=== PATIENT | female | born 1950 | race Caucasian/White ===

== ENCOUNTER 2020-06-16 10:01 | Outpatient (REF) | payer MEDICARE, MEDICAID, SELFPAY | END 2020-06-16 10:02 | disposition home or self-care (01) | LOC: HO.LAB 10:01 | PROVIDERS: Visit Provider Internal Medicine | DX: Z20.828 Contact with and (suspected) exposure to other viral communicable diseases (principal) | CPT/HCPCS: C9803; U0003 ==

== ENCOUNTER 2020-07-11 11:50 | Outpatient (REF) | payer MEDICARE, MEDICAID, SELFPAY ==
[2020-07-11 13:21] LABS: Hematocrit 42.2 % (37-47); Hemoglobin 13.9 g/dl (12.0-16.0); Mean Corpuscular HGB Conc 32.9 g/dl (31.0-35.0); Mean Corpuscular Hemoglobin 34.2 pg (27.0-33.0); Mean Corpuscular Volume 103.7 fL (80-98); Mean Platelet Volume 10.6 fL (9.4-12.3); Platelet Count 237 X10*3/uL (160-400); Red Blood Count 4.07 X10*6/uL (4.20-5.50); White Blood Count 5.7 X10*3/uL (4.8-10.8)
[2020-07-11 13:52] LABS: Alanine Aminotransferase 15 U/L (0-31); Albumin Level 4.5 g/dL (3.5-5.0); Alkaline Phosphatase 88 U/L (39-117); Anion Gap 14 (12-20); Aspartate Amino Transferase 19 U/L (5-31); Bilirubin Total 0.8 mg/dL (0.0-1.0); Blood Urea Nitrogen 13 mg/dL (9-16); Calcium 9.1 mg/dL (8.4-10.2); Carbon Dioxide 27 mmol/L (22-29); Chloride 107 mmol/L (96-108); Cholesterol 196 mg/dL; Estimated Glomerular Filt Rate > 60; Glucose Random 76 mg/dL (60-115); HDL Cholesterol 55 mg/dL; LDL Cholesterol Calculated 113 mg/dl; Potassium 4.1 mmol/l (3.3-5.1); Sodium 144 mmol/L (135-145); Total Protein 7.3 g/dL (6.5-8.0); Triglycerides 144 mg/dL
[2020-07-11 14:15] LABS: TSH reflex Free T4 0.82 mIU/mL (0.32-4.0)
[2020-07-11 14:20] LABS: Vitamin B12 < 146 pg/mL (200-900)
== END 2020-07-11 11:51 | disposition home or self-care (01) ==
LOC: HO.LAB 11:50
PROVIDERS: PCP Registered Nurse; Visit Provider Registered Nurse
DX: R41.0 Disorientation, unspecified (principal); R32 Unspecified urinary incontinence; L65.9 Nonscarring hair loss, unspecified
CPT/HCPCS: 36415; 80053; 80061; 82607; 84443; 85027

== ENCOUNTER 2020-07-12 10:29 | Outpatient (REF) | payer MEDICARE, MEDICAID, SELFPAY ==
[2020-07-12 10:41] LABS: Glucose Urine UA NEG (NEG); Leukocyte Esterase Urine NEG (NEG); Nitrite Urine NEG (NEG); PH 6.5 (5.0-8.0); Specific Gravity - Urine 1.025 (1.005-1.025); Urine Blood NEG (NEG); Urine Ketones NEG (NEG); Urine Protein NEG (NEG-TRACE)
[2020-07-12 10:54] LABS: Appearance Urine CLEAR; Color Urine YELLOW
== END 2020-07-12 10:30 | disposition home or self-care (01) ==
LOC: HO.LNP 10:29
PROVIDERS: Visit Provider Registered Nurse
DX: Z00.00 Encounter for general adult medical examination without abnormal findings (principal); R41.0 Disorientation, unspecified; L65.9 Nonscarring hair loss, unspecified; R32 Unspecified urinary incontinence
CPT/HCPCS: 81003

== ENCOUNTER 2021-09-29 07:25 | Outpatient (REF) | payer MEDICARE, MEDICAID, SELFPAY ==
[2021-09-29 08:15] LABS: Hematocrit 40.6 % (37.0-47.0); Hemoglobin 13.4 g/dl (12.0-16.0); Mean Corpuscular Hemoglobin 35.4 pg (27.0-33.0); Mean Corpuscular Volume 107.4 fL (80.0-98.0); Mean Platelet Volume 10.3 fL (9.4-12.3); Platelet Count 253 X10*3/uL (160-400); Red Blood Count 3.78 X10*6/uL (4.20-5.50); Red Cell Distribution Width 11.9 % (11.0-16.0); White Blood Count 7.4 X10*3/uL (4.8-10.8)
[2021-09-29 08:43] LABS: Alanine Aminotransferase 11 U/L (0-31); Albumin Level 4.1 g/dL (3.5-5.0); Alkaline Phosphatase 93 U/L (39-117); Anion Gap 13 (12-20); Aspartate Amino Transferase 16 U/L (5-31); Bilirubin Total 0.8 mg/dL (0.0-1.0); Blood Urea Nitrogen 16 mg/dL (9-16); Calcium 9.9 mg/dL (8.4-10.2); Carbon Dioxide 28 mmol/L (22-29); Chloride 109 mmol/L (96-108); Cholesterol 195 mg/dL; Estimated Glomerular Filt Rate > 60; Glucose Random 92 mg/dL (60-115); HDL Cholesterol 55 mg/dL; LDL Cholesterol Calculated 123 mg/dl; Potassium 4.8 mmol/L (3.3-5.1); Sodium 145 mmol/L (135-145); Total Protein 6.7 g/dL (6.5-8.0); Triglycerides 87 mg/dL
[2021-09-29 09:04] LABS: TSH reflex Free T4 0.76 uIU/mL (0.32-4.0)
[2021-10-01 08:00] LABS: ~Hepatitis B Surface Antibody NONREACTIVE (Nonreactive)
[2021-10-01 08:47] LABS: Vitamin B12 < 146 pg/mL (200-900)
== END 2021-09-29 07:26 | disposition home or self-care (01) ==
LOC: HO.LAB 07:25
PROVIDERS: PCP Registered Nurse; Visit Provider Registered Nurse
DX: Z00.00 Encounter for general adult medical examination without abnormal findings (principal); R41.0 Disorientation, unspecified; L65.9 Nonscarring hair loss, unspecified
CPT/HCPCS: 36415; 80053; 80061; 82607; 84443; 85027; 86706

== ENCOUNTER 2021-10-02 11:50 | Outpatient (REF) | payer MEDICARE, MEDICAID, SELFPAY ==
[2021-10-02 12:08] LABS: Appearance Urine CLOUDY; Color Urine YELLOW; Glucose Urine UA NEG (NEG); Leukocyte Esterase Urine NEG (NEG); Nitrite Urine NEG (NEG); Urine Blood NEG (NEG); Urine Ketones NEG (NEG); Urine Protein NEG (NEG-TRACE)
== END 2021-10-02 11:51 | disposition home or self-care (01) ==
LOC: HO.LNP 11:50
PROVIDERS: Visit Provider Registered Nurse
DX: Z00.00 Encounter for general adult medical examination without abnormal findings (principal); R41.0 Disorientation, unspecified; L65.9 Nonscarring hair loss, unspecified
CPT/HCPCS: 81003

== ENCOUNTER 2022-02-25 11:13 | Outpatient (REF) | payer MEDICARE, MEDICAID, SELFPAY ==
[2022-02-25 12:15] LABS: Appearance Urine CLOUDY; Color Urine YELLOW; Glucose Urine UA NEG (NEG); Leukocyte Esterase Urine 2+ (NEG); Nitrite Urine POS (NEG); Specific Gravity - Urine >= 1.030 (1.005-1.025); UACC Culture Trigger YES; Urine Blood 3+ (NEG); Urine Ketones 40 MG/DL (NEG); Urine Protein 2+ MG/DL (NEG-TRACE)
[2022-02-25 12:48] LABS: WBC Urine TNTC /HPF (0-4)
[2022-02-25 12:49] LABS: Bacteria Urine 3+ /LPF; Squamous Epithelial Cell Urine TRACE /LPF
== END 2022-02-25 11:14 | disposition home or self-care (01) ==
LOC: HO.LNP 11:13
PROVIDERS: Visit Provider Nurse Practitioner Family
DX: R35.0 Frequency of micturition (principal)
CPT/HCPCS: 81001; 81003; 87086; 87088; 87186

== ENCOUNTER 2022-03-20 16:49 | Outpatient (REF) | payer MEDICARE, MEDICAID, SELFPAY ==
[2022-03-20 18:05] LABS: Hematocrit 43.4 % (37.0-47.0); Hemoglobin 14.4 g/dl (12.0-16.0); Mean Corpuscular HGB Conc 33.2 g/dl (31.0-35.0); Mean Corpuscular Hemoglobin 34.8 pg (27.0-33.0); Mean Corpuscular Volume 104.8 fL (80.0-98.0); Mean Platelet Volume 11.1 fL (9.4-12.3); Platelet Count 243 X10*3/uL (160-400); Red Blood Count 4.14 X10*6/uL (4.20-5.50); Red Cell Distribution Width 12.6 % (11.0-16.0); White Blood Count 8.1 X10*3/uL (4.8-10.8)
[2022-03-20 18:13] LABS: Alanine Aminotransferase 16 U/L (0-31); Alkaline Phosphatase 88 U/L (39-117); Anion Gap 18 (12-20); Aspartate Amino Transferase 17 U/L (5-31); Bilirubin Total 0.4 mg/dL (0.0-1.0); Blood Urea Nitrogen 9 mg/dL (9-16); Carbon Dioxide 25 mmol/L (22-29); Chloride 105 mmol/L (96-108); Estimated Glomerular Filt Rate > 60; Glucose Random 92 mg/dL (60-115); Potassium 3.5 mmol/L (3.3-5.1); Sodium 144 mmol/L (135-145); Total Protein 6.7 g/dL (6.5-8.0)
[2022-03-20 18:34] LABS: Thyroid Stimulating Hormone 0.89 uIU/mL (0.32-4.0)
[2022-03-21 08:55] LABS: ~HepC Num1 0.36 S/CO (0.00-0.79); ~Hepatitis C Antibody Nonreactive (Nonreactive)
== END 2022-03-20 16:50 | disposition home or self-care (01) ==
LOC: HO.LAB 16:49
PROVIDERS: Visit Provider Internal Medicine
DX: Z11.59 Encounter for screening for other viral diseases (principal); R53.81 Other malaise; R53.83 Other fatigue; N39.0 Urinary tract infection, site not specified
CPT/HCPCS: 36415; 80053; 82306; 84443; 85027; 86803

== ENCOUNTER 2022-03-21 09:48 | Outpatient (REF) | payer MEDICARE, MEDICAID, SELFPAY ==
[2022-03-21 10:04] LABS: Appearance Urine Turbid; Color Urine Yellow; Glucose Urine UA Negative (Negative); Leukocyte Esterase Urine Moderate (2+) (Negative); Nitrite Urine Negative (Negative); PH 8.5 (5.0-9.0); Urine Blood Trace (Negative); Urine Ketones Negative (Negative); Urine Protein Negative (Neg-Trace)
[2022-03-21 10:23] LABS: Bacteria Urine Trace (None Seen); Hyaline Casts Urine 0-2 /LPF (0-2)
[2022-03-21 10:25] LABS: UACC Culture Trigger YES
== END 2022-03-21 09:49 | disposition home or self-care (01) ==
LOC: HO.LNP 09:48
PROVIDERS: Visit Provider Registered Nurse
DX: N39.0 Urinary tract infection, site not specified (principal)
CPT/HCPCS: 81001; 81003; 87086

== ENCOUNTER 2022-03-26 11:45 | Emergency (ER) | payer MEDICARE, MEDICAID, SELFPAY ==
--- NOTE | ~2022-03-26 | CT_ITS ---
EXAMINATION: CT HEAD WITHOUT CONTRAST CLINICAL INFORMATION: Change in mental status COMPARISON: None TECHNIQUE: Contiguous axial imaging was performed from the skull base to vertex without intravenous administration of contrast. Additional 2-D coronal and sagittal reformatted images are generated on the CT workstation and uploaded to PACS. This CT examination was performed using dose optimization techniques as appropriate, variously including the following: *Automated exposure control *Adjustment of mA and/or kV according to patient size (this includes techniques or standardized protocols for targeted exams where dose is matched to indication/reason for exam; i.e. extremities or head) *Use of iterative reconstruction technique DLP: 672 mGy-cm FINDINGS: There is no intracranial hemorrhage, hematoma, or extra-axial fluid collection. The ventricles are normal in size. There is no hydrocephalus, edema, or mass effect. There is periventricular white matter gliosis consistent with small vessel ischemic changes. Pham-white matter differentiation appears within normal. There is no visible acute territorial infarct or mass lesion. The calvarium appears intact. There is no pneumocephalus or orbital emphysema. The visualized sinuses and middle ears and mastoid air cells show no significant mucosal thickening. There are no air-fluid levels. There are degenerative changes upper cervical spine involving the discs and facets. There is no atlantoaxial subluxation of 7 mm best appreciated on the sagittal reformatted images. CT/CT head/brain wo IV con IMPRESSION: -Atlantoaxial subluxation 7 mm (C1-C2). -Periventricular white matter gliosis consistent with chronic small vessel ischemic changes. -No intracranial hemorrhage, hydrocephalus, or mass effect.
--- NOTE | ~2022-03-26 | XR_ITS ---
EXAMINATION: XR CHEST CLINICAL INFORMATION: Weakness. COMPARISON: None TECHNIQUE: Frontal view of the chest was obtained. FINDINGS: No significant abnormality is noted involving the heart, lungs, mediastinum, bony thorax or soft tissues. XR/XR chest 1V IMPRESSION: No acute cardiopulmonary process.
--- NOTE | 2022-03-26 11:56 | ECG_ITS ---
Test Reason : weakness Blood Pressure : / mmHG Vent. Rate : 077 BPM Atrial Rate : 077 BPM P-R Int : 128 ms QRS Dur : 084 ms QT Int : 372 ms P-R-T Axes : 070 -37 058 degrees QTc Int : 420 ms Normal sinus rhythm Left axis deviation Nonspecific T wave abnormality Abnormal ECG No previous ECGs available Referred By: Denise León Electronically Signed By:DORIE ACEVEDO
--- NOTE | 2022-03-26 11:57 | ED_ITS ---
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 14:00 more history was obtained from the caregiver who knows the patient for the last 8 years, symptoms started about 6 weeks ago after was diagnosed with COVID, patient is progressively and gradually deteriorating, with increased weakness on the right upper extremity, patient used to feed herself with the right side now is unable to feed herself due to right upper extremity weakness. Reported also by the caregiver patient is becoming incontinent. Related Data Home Medications Medication Instructions Recorded Confirmed acetaminophen 325 mg tablet 650 mg PO Q6H PRN Fever Or Pain 03/26/22 03/26/22 calcium carbonate 500 mg-vitamin 1 tab PO BID 03/26/22 03/26/22 D3 5 mcg (200 unit) tablet (Oyster Shell Calcium-Vitamin D3) dantrolene 25 mg capsule 25 mg PO BEDTIME 03/26/22 03/26/22 guaifenesin 100 mg/5 mL oral liquid 200 mg PO Q4H PRN Cough 03/26/22 03/26/22 magnesium oxide 400 mg (241.3 mg 1 tab PO DAILY 03/26/22 03/26/22 magnesium) tablet omeprazole 20 mg capsule,delayed 1 cap PO DAILY 03/26/22 03/26/22 release psyllium husk 3 gram/5.4 gram oral 1 tsp PO DAILY 03/26/22 03/26/22 powder (Reguloid (psyllium husk)) Allergies Allergy/AdvReac Type Severity Reaction Status Date / Time No Known Allergies Allergy Unverified 03/30/20 15:28 Review of Systems Review of Systems: Yes Unobtainable due to mental condition (Congenital cerebral palsy) [facility] Past Medical History Medical History (Updated 03/26/22 @ 17:39 by Denise León MD) Cerebral palsy Social History Social History Advance Directives: No Advance Directives Information Provided: No Physical Exam ED Vital Signs: Vital Signs - 24 hr 03/26/22 12:03 03/26/22 12:06 03/26/22 16:49 Temperature 99.4 F 99.4 F 99.1 F Pulse Rate 77 75 62 Respiratory Rate 16 14 12 Blood Pressure 167/97 H 167/97 H 157/89 H Pulse Oximetry 97 97 98 Oxygen Delivery Method Room Air Room Air Room Air BMI result Body Mass Index 17.6 Vital signs have been reviewed as appeared to be correct. Blood pressure normal. Heart rate normal. Respiration rate normal. Temperature normal. Oxygen saturation normal. Appearance: Alert. Nonverbal, regards examiner with her eyes. Head: Normal external exam. Normocephalic. Atraumatic. No Chavarria signs noted. No raccoon eyes noted Eyes: PERRLA. EOMI. Conjunctiva and sclera normal. Eyelids normal. ENT: TM's Normal. Pharynx normal. Uvula midline. Moist mucous membranes. No trismus noted. No drooling noted. No muffled voice noted. Neck: Normal inspection. Neck supple. FROM. No adenopathy. Thyroid Normal. No meningeal signs. No neck mass noted. CVS: Normal heart rate and rhythm. Heart sound normal. No murmurs noted. Pulses normal throughout. Respiratory: No respiratory distress. Painless inspiration. Breath sounds normal. No wheezes/rales/rhonchi noted. Chest nontender. No accessory muscle usage noted or decreased air movement noted. Abdomen: Soft and nontender. Bowel sounds normal in all 4 quadrants. No distention noted. No organomegaly noted. No visible injury noted. Back: No CVA tenderness. Full range of motion noted. Skin: Skin warm and dry. Normal skin color. Normal skin turgor. No rashes/lesions/lacerations noted. Extremities: No lower extremity edema. Extremities exhibit normal range of motion. Extremities nontender. Neuro: Nonverbal Generalized body contraction Course Course Course Narrative: 71-year-old female with history of CP, mostly bed/wheelchair bound, according to the caregiver patient was able to feed herself with her right hand, patient also was able to asked be transported to the bathroom, for the past 2 months after she was infected with COVID patient has been deteriorating and deconditioning with increased weakness on the right side and urinary incontinence. Workup was done in the emergency department today showing no major medical condition to explain patient's symptoms CT of the head revealed significant C1-C2 subluxation (7 mm) which could be a reason of patient's symptoms, case discussed with Dr. Lawler who recommended to discuss it with neurosurgeon. After detailed lengthy discussion with the caregiver and the brother Jv Govea who is the legal guardian neuro surgical consultation was requested by the family. Case discussed with [facility] transfer system patient was declined for transfer due to over volume at [facility]. Case discussed with [facility] and the patient will be accepted for ED to ED transfer accepting physician is Dr. Nilsa Cooper. Will arrange for transfer. Medical Decision Making Lab Data Lab results reviewed: Yes I reviewed the patient's lab results. Result diagrams: 03/26/22 14:17 03/26/22 14:17 Labs: Lab Results 03/26/22 03/26/22 03/26/22 Range/Units 14:17 14:17 14:17 WBC 6.7 (4.8-10.8) X10*3/uL RBC 3.49 L (4.20-5.50) X10*6/uL Hgb 12.3 (12.0-16.0) g/dl Hct 36.8 L (37.0-47.0) % MCV 105.4 H (80.0-98.0) fL MCH 35.2 H (27.0-33.0) pg MCHC 33.4 (31.0-35.0) g/dl RDW 12.9 (11.0-16.0) % Plt Count 235 (160-400) X10*3/uL MPV 9.9 (9.4-12.3) fL Immature Gran % (Auto) 0.3 (0.0-0.4) % Neut % (Auto) 70.9 (45-73) % Lymph % (Auto) 18.6 L (20-40) % [place] % (Auto) 9.0 (2-11) % Eos % (Auto) 0.9 (0-4) % Baso % (Auto) 0.3 (0-2) % Lymph # (Auto) 1.2 (1.2-4.9) X10*3/uL [place] # (Auto) 0.6 (0.1-1.2) X10*3/uL Eos # (Auto) 0.1 (0.0-0.4) X10*3/uL Baso # (Auto) 0.0 (0.0-0.2) X10*3/uL Abs Immat Gran (auto) 0.02 (0.00-0.03) X10*3/uL Absolute Neuts (auto) 4.7 (2.0-8.3) x10*3/uL Absolute Nucleated RBC 0.000 (0.0-0.012) X10*3/uL Nucleated RBC % (auto) 0.0 (0.0-0.2) /100WBC Sodium 146 H (135-145) mmol/L Potassium 3.5 (3.3-5.1) mmol/L Chloride 111 H (96-108) mmol/L Carbon Dioxide 27 (22-29) mmol/L Anion Gap 12 (12-20) BUN 10 (9-16) mg/dL Creatinine 0.57 (0.5-1.4) mg/dL Estim Creat Clear Calc 50.0 Estimated GFR > 60 Random Glucose 93 (60-115) mg/dL Calcium 8.4 D (8.4-10.2) mg/dL Total Bilirubin 0.4 (0.0-1.0) mg/dL Direct Bilirubin 0.2 (0.0-0.5) mg/dL AST 16 (5-31) U/L ALT 19 (0-31) U/L Alkaline Phosphatase 78 (39-117) U/L Troponin I High Sens < 3.5 (<3.5-17.0) ng/L B-Natriuretic Peptide 31 (<100) pg/mL Total Protein 5.9 L (6.5-8.0) g/dL Albumin 3.6 (3.5-5.0) g/dL Lipase 66 (8-78) U/L Urine Color Urine Appearance Urine pH (5.0-9.0) Ur Specific [place] (1.005-1.025) Urine Protein (Neg-Trace) mg/dL Urine Glucose (UA) (Negative) mg/dL Urine Ketones (Negative) mg/dL Urine Blood (Negative) Urine Nitrite (Negative) Ur Leukocyte Esterase (Negative) Urine RBC (0-2) /HPF Urine WBC (0-5) /HPF Ur Squamous Epith Cells (0-2) /HPF Ur Transition Epith Cell Ur Renal Epithelial Cell Other Crystals Urine Bacteria (None Seen) Hyaline Casts (0-2) /LPF Influenza Type A (PCR) (Negative) Influenza Type B (PCR) (Negative) RSV RNA Qual (PCR) (Negative) SARS-CoV-2 RNA (RT-PCR) (Negative) 03/26/22 03/26/22 Range/Units 14:38 16:45 WBC (4.8-10.8) X10*3/uL RBC (4.20-5.50) X10*6/uL Hgb (12.0-16.0) g/dl Hct (37.0-47.0) % MCV (80.0-98.0) fL MCH (27.0-33.0) pg MCHC (31.0-35.0) g/dl RDW (11.0-16.0) % Plt Count (160-400) X10*3/uL MPV (9.4-12.3) fL Immature Gran % (Auto) (0.0-0.4) % Neut % (Auto) (45-73) % Lymph % (Auto) (20-40) % [place] % (Auto) (2-11) % Eos % (Auto) (0-4) % Baso % (Auto) (0-2) % Lymph # (Auto) (1.2-4.9) X10*3/uL [place] # (Auto) (0.1-1.2) X10*3/uL Eos # (Auto) (0.0-0.4) X10*3/uL Baso # (Auto) (0.0-0.2) X10*3/uL Abs Immat Gran (auto) (0.00-0.03) X10*3/uL Absolute Neuts (auto) (2.0-8.3) x10*3/uL Absolute Nucleated RBC (0.0-0.012) X10*3/uL Nucleated RBC % (auto) (0.0-0.2) /100WBC Sodium (135-145) mmol/L Potassium (3.3-5.1) mmol/L Chloride (96-108) mmol/L Carbon Dioxide (22-29) mmol/L Anion Gap (12-20) BUN (9-16) mg/dL Creatinine (0.5-1.4) mg/dL Estim Creat Clear Calc Estimated GFR Random Glucose (60-115) mg/dL Calcium (8.4-10.2) mg/dL Total Bilirubin (0.0-1.0) mg/dL Direct Bilirubin (0.0-0.5) mg/dL AST (5-31) U/L ALT (0-31) U/L Alkaline Phosphatase (39-117) U/L Troponin I High Sens (<3.5-17.0) ng/L B-Natriuretic Peptide (<100) pg/mL Total Protein (6.5-8.0) g/dL Albumin (3.5-5.0) g/dL Lipase (8-78) U/L Urine Color Yellow Urine Appearance Cloudy Urine pH 8.0 (5.0-9.0) Ur Specific [place] 1.010 (1.005-1.025) Urine Protein Negative (Neg-Trace) mg/dL Urine Glucose (UA) Negative (Negative) mg/dL Urine Ketones Negative (Negative) mg/dL Urine Blood Small (1+) H (Negative) Urine Nitrite Negative (Negative) Ur Leukocyte Esterase Trace H (Negative) Urine RBC 6-10 H (0-2) /HPF Urine WBC 0-5 (0-5) /HPF Ur Squamous Epith Cells 3-5 (0-2) /HPF Ur Transition Epith Cell Present Ur Renal Epithelial Cell Present Other Crystals Present Urine Bacteria None Seen (None Seen) Hyaline Casts 3-5 (0-2) /LPF Influenza Type A (PCR) NEGATIVE (Negative) Influenza Type B (PCR) NEGATIVE (Negative) RSV RNA Qual (PCR) NEGATIVE (Negative) SARS-CoV-2 RNA (RT-PCR) NEGATIVE (Negative) Imaging Data CT scan - head: Attestation: I personally reviewed and interpreted this imaging study as follows: Radiologist's impression: There is no intracranial hemorrhage, hematoma, or extra-axial fluid collection.? The ventricles are normal in size. There is no hydrocephalus, edema, or mass effect.? There is periventricular white matter gliosis consistent with small vessel ischemic changes. Pham-white matter differentiation appears within normal. There is no visible acute territorial infarct or mass lesion. The calvarium appears intact. There is no pneumocephalus or orbital emphysema.? The visualized sinuses and middle ears and mastoid air cells show no significant mucosal thickening. There are no air-fluid levels. There are degenerative changes upper cervical spine involving the discs and facets. There is no atlantoaxial subluxation of 7 mm best appreciated on the sagittal reformatted images. CT/CT head/brain wo IV con IMPRESSION: -Atlantoaxial subluxation 7 mm (C1-C2). -Periventricular white matter gliosis consistent with chronic small vessel ischemic changes. -No intracranial hemorrhage, hydrocephalus, or mass effect. ? Chest x-ray: Attestation: I personally reviewed and interpreted this imaging study as follows: Radiologist's impression: No acute cardiopulmonary process. ECG Data Attestation: I personally reviewed and interpreted this ECG as follows: Interpretation: Normal sinus rhythm at 77 beats per minute, left axis deviation, normal intervals, nonspecific ST-T changes. Discharge Plan Discharge Clinical Impression: Cerebral palsy, Physical deconditioning, Atlanto-axial subluxation Patient Disposition: General Acute Hospital Transfer Details: To the ED accepted by Dr. Ash. Prescriptions: No Action acetaminophen 325 mg Tablet 650 mg PO Q6H PRN (Reason: Fever Or Pain) dantrolene 25 mg capsule 25 mg PO BEDTIME magnesium oxide 400 mg (241.3 mg magnesium) tablet 1 tab PO DAILY omeprazole 20 mg capsule,delayed release(DR/EC) 1 cap PO DAILY calcium carbonate-vitamin D3 [Oyster Shell Calcium-Vit D3] 500 mg-5 mcg (200 unit) tablet 1 tab PO BID Reguloid (psyllium husk) 3 gram/5.4 gram powder 1 tsp PO DAILY guaifenesin 100 mg/5 mL Liquid 200 mg PO Q4H PRN (Reason: Cough)
[2022-03-26 11:59] VITALS: BP 160/102; PULSE 93; O2SAT 99
[2022-03-26 12:03] VITALS: BP 167/97; PULSE 77; RESP 16; TEMP 37.4; O2SAT 97; BMI 17.6
[2022-03-26 12:06] VITALS: BP 167/97; PULSE 75; RESP 14; TEMP 37.4; O2SAT 97
[2022-03-26] MEDS: 0.9 % Sodium Chloride 1,000 ML 999 ML IV (13:20)
[2022-03-26 14:21] LABS: MANUAL DIFF FLAG NO
[2022-03-26 14:34] LABS: Basophils Percent Auto 0.3 % (0-2); Eosinophils Absolute Auto 0.1 X10*3/uL (0.0-0.4); Eosinophils Percent Auto 0.9 % (0-4); Hematocrit 36.8 % (37.0-47.0); Hemoglobin 12.3 g/dl (12.0-16.0); Imm Gran Abs Auto 0.02 X10*3/uL (0.00-0.03); Imm Gran Pct Auto 0.3 % (0.0-0.4); Lymphocytes Absolute Auto 1.2 X10*3/uL (1.2-4.9); Lymphocytes Percent Auto 18.6 % (20-40); Mean Corpuscular HGB Conc 33.4 g/dl (31.0-35.0); Mean Corpuscular Hemoglobin 35.2 pg (27.0-33.0); Mean Corpuscular Volume 105.4 fL (80.0-98.0); Mean Platelet Volume 9.9 fL (9.4-12.3); Monocytes Absolute Auto 0.6 X10*3/uL (0.1-1.2); Neutrophils Absolute Auto 4.7 x10*3/uL (2.0-8.3); Neutrophils Percent Auto 70.9 % (45-73); Platelet Count 235 X10*3/uL (160-400); Red Blood Count 3.49 X10*6/uL (4.20-5.50); Red Cell Distribution Width 12.9 % (11.0-16.0); White Blood Count 6.7 X10*3/uL (4.8-10.8)
[2022-03-26 14:40] LABS: Alanine Aminotransferase 19 U/L (0-31); Albumin Level 3.6 g/dL (3.5-5.0); Alkaline Phosphatase 78 U/L (39-117); Anion Gap 12 (12-20); Aspartate Amino Transferase 16 U/L (5-31); Bilirubin Direct 0.2 mg/dL (0.0-0.5); Bilirubin Total 0.4 mg/dL (0.0-1.0); Blood Urea Nitrogen 10 mg/dL (9-16); Calcium 8.4 mg/dL (8.4-10.2); Carbon Dioxide 27 mmol/L (22-29); Chloride 111 mmol/L (96-108); Estimated Glomerular Filt Rate > 60; Glucose Random 93 mg/dL (60-115); Lipase 66 U/L (8-78); Potassium 3.5 mmol/L (3.3-5.1); Sodium 146 mmol/L (135-145); Total Protein 5.9 g/dL (6.5-8.0)
[2022-03-26 14:43] LABS: B Type Natriuretic Peptide 31 pg/mL (<100); Troponin-I High Sensitivity < 3.5 ng/L (<3.5-17.0)
--- NOTE | 2022-03-26 14:59 | PHA.MEDREC ---
Pharmacy Consult ? Medication Reconciliation Pharmacy has completed the medication reconciliation. Utilized list faxed up to pharmacy
[2022-03-26 15:51] LABS: Influenza A PCR NEGATIVE (Negative); Influenza B PCR NEGATIVE (Negative); Resp Syncy Virus RNA Qual PCR NEGATIVE (Negative); SARS COV2 PCR INHOUSE NEGATIVE (Negative)
[2022-03-26 16:49] VITALS: BP 157/89; PULSE 62; RESP 12; TEMP 37.3; O2SAT 98
[2022-03-26 16:51] LABS: Appearance Urine Cloudy; Color Urine Yellow; Glucose Urine UA Negative (Negative); Leukocyte Esterase Urine Trace (Negative); Nitrite Urine Negative (Negative); UMIC TRIGGER UACC YES; Urine Blood Small (1+) (Negative); Urine Ketones Negative (Negative); Urine Protein Negative (Neg-Trace)
--- NOTE | 2022-03-26 16:55 | PC.NURSE ---
@ [id number] DR SEWELL REQUEST CALL OUT TO [facility] PT TX LINE FOR POSSIBLE TRANSFER SANJEEV ANSWERS AND ASKS TO SPEAK WITH DR DONATO SEWELL TAKES OVER CALL RIGHT AWAY
--- NOTE | 2022-03-26 16:57 | PC.NURSE ---
PER DR SEWELL [facility] TX LINE DECLINES THIS PT FOR TRANFER DR SEWELL REQUESTS CALL OUT TO [facility] ANSWERS AND TAKES PT INFO THEN ASKS TO SPEAK WITH DR DONATO SEWELL TAKES OVER CALL RIGHT AWAY
[2022-03-26 16:58] LABS: Bacteria Urine None Seen (None Seen); Other Crystals Urine Present; Renal Epithelial Cells Urine Present; Transitional Epi Cells Urine Present; WBC Urine 0-5 /HPF (0-5)
--- NOTE | 2022-03-26 19:36 | PC.NURSE ---
transfer to [facility] for neurosurgical consult
== END 2022-03-26 19:37 | disposition short-term general hospital (02) ==
PROVIDERS: Emergency Provider Emergency Medicine; PCP Registered Nurse
DX: G80.9 Cerebral palsy, unspecified (principal); R53.81 Other malaise; M43 Other deforming dorsopathies; R53.1 Weakness; Z20.822 Contact with and (suspected) exposure to COVID-19; Z79.899 Other long term (current) drug therapy
CPT/HCPCS: 0241U; 36415; 70450; 71045; 80048; 80076; 81001; 83690; 83880; 84484; 85025; 93005; 96360; 96361; 99284; 99285

== ENCOUNTER 2022-08-10 09:22 | Emergency (ER) | payer MEDICARE, MEDICAID, SELFPAY ==
--- NOTE | ~2022-08-10 | US_ITS ---
EXAMINATION: LEFT LOWER EXTREMITY DEEP VENOUS ULTRASOUND CLINICAL INFORMATION: Left leg swelling COMPARISON: None. TECHNIQUE: Duplex Doppler imaging with compression maneuvers were performed of the left lower extremity deep venous system. FINDINGS: The visualized common femoral, femoral and popliteal veins demonstrate normal compressibility and color flow without evidence of venous thrombosis. Visualized portions of the calf veins demonstrate normal color fill-in suggesting patency. There is no evidence of a Reid's cyst. US/US venous duplex LE LT IMPRESSION: No evidence of deep venous thrombosis involving the left lower extremity.
--- NOTE | ~2022-08-10 | US_ITS ---
EXAMINATION: US VENOUS WITH DOPPLER UPPER EXTREMITY, LEFT CLINICAL INFORMATION: Left upper extremity swelling. COMPARISON: None TECHNIQUE: Ultrasound of the upper extremity is performed using compression sonography and color and pulse Doppler flow with assessment of augmentation of flow. There is also imaging and Doppler assessment of the jugular and subclavian veins. Spectral analysis with color-flow imaging is performed. FINDINGS: Respiratory variation, normal compression, and augmented flow are noted throughout the upper extremity including the axillary, brachial, cubital, and ulnar veins. Radial veins not well seen. 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 There is normal flow in the internal jugular and subclavian veins. There is no visible deep or superficial thrombophlebitis. Distal forearm subcutaneous edema. If the patient's symptoms progress, a followup ultrasound in 5 -7 days might be of value to exclude proximal propagation from a nonvisualized distal arm vein. US/US venous duplex UE LT IMPRESSION: No DVT demonstrated in the left upper extremity.
--- NOTE | ~2022-08-10 | XR_ITS ---
EXAMINATION: XR ELBOW, LEFT CLINICAL INFORMATION: Pain and swelling COMPARISON: None TECHNIQUE: AP, lateral, and oblique views of the left elbow. Today's examination is limited secondary to difficulties with patient positioning FINDINGS: No gross fracture or dislocation. No joint effusion. No focal soft tissue swelling. No radiopaque foreign body. XR/XR elbow LT 2V IMPRESSION: Unremarkable radiographs of the left elbow.
[2022-08-10 09:29] VITALS: BP 201/126; PULSE 75; RESP 16; O2SAT 96; BMI 18.3
--- NOTE | 2022-08-10 09:31 | ED.EXTPRO ---
HPI - Extremity Problem General Chief complaint: Extremity Injury, Upper Stated complaint: LUE SWELLING/PAIN,NO INJURY PER EMS Time Seen by Provider: 08/10/22 09:23 Source: EMS and other (correction staff) Mode of arrival: EMS Limitations: other (nonverbal) History of Present Illness HPI Narrative: 72-year-old female with a history of cerebral palsy, wheelchair bound at baseline, c1/c2 instability (per staff now in aspen collar prn) who presents with complaints of atraumatic left elbow swelling and pain. Per staff they noticed this morning with waking. They felt that the patient was in pain. She is nonverbal at baseline. Related Data Home Medications Medication Instructions Recorded Confirmed acetaminophen 325 mg tablet 650 mg PO Q6H PRN Fever Or Pain 03/26/22 03/26/22 calcium carbonate 500 mg-vitamin 1 tab PO BID 03/26/22 03/26/22 D3 5 mcg (200 unit) tablet (Oyster Shell Calcium-Vitamin D3) dantrolene 25 mg capsule 25 mg PO BEDTIME 03/26/22 03/26/22 guaifenesin 100 mg/5 mL oral liquid 200 mg PO Q4H PRN Cough 03/26/22 03/26/22 magnesium oxide 400 mg (241.3 mg 1 tab PO DAILY 03/26/22 03/26/22 magnesium) tablet omeprazole 20 mg capsule,delayed 1 cap PO DAILY 03/26/22 03/26/22 release psyllium husk 3 gram/5.4 gram oral 1 tsp PO DAILY 03/26/22 03/26/22 powder (Reguloid (psyllium husk)) Previous Rx's Medication Instructions Recorded oxycodone 5 mg tablet 5 mg PO Q6H PRN pain #8 tabs 08/10/22 Allergies Allergy/AdvReac Type Severity Reaction Status Date / Time No Known Allergies Allergy Unverified 03/30/20 15:28 Review of Systems Review of Systems: Yes Unobtainable due to mental condition (non-verbal at baseline ) [facility] Past Medical History Attestation statement: The following information was validated with the patient. Source: old records reviewed and nursing notes reviewed Medical History Cerebral palsy Social History Social History Advance Directives: No Physical Exam Vital Signs: Vital Signs: Last Vital Signs Pulse 71 08/10/22 12:23 Resp 16 08/10/22 12:23 BP 141/87 H 08/10/22 12:23 Pulse Ox 95 08/10/22 12:23 O2 Del Method 08/10/22 12:23 BMI result Body Mass Index 18.3 Const: Other: +tearful during exam General: alert HEENT: Head: Yes normal to inspection Ears: hearing grossly normal bilaterally General nose exam: Normal external nose present Face and sinus: Yes normal facial exam Mouth: Normal oral and palatal mucosa present Throat: Yes posterior oropharynx normal Eyes: General: appearance normal, both eyes and all related structures Pupils: Equal, round and reactive pupils present Neck: Neck: Yes normal visual inspection Chest: Chest palpation & inspection: normal inspection of the chest Resp: Effort & Inspection: normal respiratory effort Auscultation: clear to auscultation bilaterally Cardio: Rate: regular rate Rhythm: regular rhythm Peripheral pulses: Peripheral pulses 2+ throughout GI: Inspection: Yes normal to inspection Palpation (GI): Soft to palpation and nontender Auscultation: normal bowel sounds Back/Spine/Pelvis: Thoracic/Lumbar Spine: thoracic and lumbar spine normal to inspection Skin: General skin exam: no rashes or lesions noted Neuro: Other: +contractures noted to all four extremities Cranial nerves: Yes Equal, round and reactive pupils present Extrem: Other: Over the left elbow there is mild circumferential swelling, no warmth or redness. Compartments are compressible. Elbow is held in partial flexion d/t contracture. Unable to assess ROM d/t contracture. Sensation normal. 2+ radial/ulnar pulses. On palpation there is tenderness. NO pain over the FA/humerus/shoulder. General: Yes normal to inspection Course Course Course Narrative: Labs are unremarkable with exception of mildly elevated lactic acid. I do not believe this is from infection. May be medication related. Continued pain despite APAP. X-ray shows no fracture. Will obtain venous US. Give additional analgesia. Reevaluation(s) Reevaluation #1: 1300-ultrasound negative for DVT. Repeat lactic improved. Blood pressure improved without intervention. Likely musculoskeletal. Patient will be discharged back to correction. Instructions given a correction staff. Reviewed worrisome signs and symptoms of when to return to the emergency room. Comfortable plan for discharge home. Medications Administered Discontinued Medications Generic Name Dose Route Start Last Admin Trade Name Reggie PRN Reason Stop Dose Admin Acetaminophen 650 mg 08/10/22 09:30 08/10/22 10:11 Acetaminophen 325 Mg Tablet PO 08/10/22 09:31 650 mg ONCE ONE Administration Oxycodone HCl 5 mg 08/10/22 10:53 08/10/22 11:11 Oxycodone Hcl Immed Release 5 Mg Tablet PO 08/10/22 10:54 5 mg ONCE ONE Administration Medical Decision Making Medical Decision Making [facility] [place] Narrative: 72 yo female from a correction with history of CP/ wheelchair bound at baseline with 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 Difficult to assess ROM d/t baseline contracture. There is circumferential swelling noted to the left elbow which is mild-compartments soft. +TTP. No warmth/redness. NV intact distally. Patient non-verbal winces, +tears during exam. Will obtain labs, x-ray Differential Diagnosis Differential Diagnoses: The differential diagnosis associated with the presentation includes Consider fracture, OA, cellulitis/septic joint, gout Low concern for nec fasc Staff reports h/o LUE DVT and she had been on eliquis. Unsure why she is no longer taking this. Will obtain US Lab Data [facility] [place] Lab Attestation statement: I reviewed the patient's lab results. 08/10/22 09:43 08/10/22 09:43 Labs: Lab Results 08/10/22 08/10/22 08/10/22 Range/Units 09:43 09:43 09:43 WBC 5.6 (4.8-10.8) X10*3/uL RBC 4.31 D (4.20-5.50) X10*6/uL Hgb 13.9 (12.0-16.0) g/dl Hct 42.0 (37.0-47.0) % MCV 97.4 (80.0-98.0) fL MCH 32.3 (27.0-33.0) pg MCHC 33.1 (31.0-35.0) g/dl RDW 12.3 (11.0-16.0) % Plt Count 308 D (160-400) X10*3/uL MPV 9.4 (9.4-12.3) fL Immature Gran % (Auto) 0.2 (0.0-0.4) % Neut % (Auto) 64.1 (45-73) % Lymph % (Auto) 25.2 (20-40) % Swain % (Auto) 8.4 (2-11) % Eos % (Auto) 1.6 (0-4) % Baso % (Auto) 0.5 (0-2) % Lymph # (Auto) 1.4 (1.2-4.9) X10*3/uL Swain # (Auto) 0.5 (0.1-1.2) X10*3/uL Eos # (Auto) 0.1 (0.0-0.4) X10*3/uL Baso # (Auto) 0.0 (0.0-0.2) X10*3/uL Abs Immat Gran (auto) 0.01 (0.00-0.03) X10*3/uL Absolute Neuts (auto) 3.6 (2.0-8.3) x10*3/uL Absolute Nucleated RBC 0.000 (0.0-0.012) X10*3/uL Nucleated RBC % (auto) 0.0 (0.0-0.2) /100WBC ESR 6 (0-20) MM/HR Sodium 145 (135-145) mmol/L Potassium 3.6 (3.3-5.1) mmol/L Chloride 110 H (96-108) mmol/L Carbon Dioxide 24 (22-29) mmol/L Anion Gap 15 (12-20) BUN 9 (9-16) mg/dL Creatinine 0.67 (0.5-1.4) mg/dL Estim Creat Clear Calc 61.5 Estimated GFR > 60 Random Glucose 113 (60-115) mg/dL Lactic Acid (0.5-2.0) mmol/L Lactic Acid F/U @ 2Hr (0.5-2.0) mmol/L Calcium 9.4 D (8.4-10.2) mg/dL C-Reactive Protein < 0.04 (< or = 0.50) mg/dL 08/10/22 08/10/22 Range/Units 09:43 12:28 WBC (4.8-10.8) X10*3/uL RBC (4.20-5.50) X10*6/uL Hgb (12.0-16.0) g/dl Hct (37.0-47.0) % MCV (80.0-98.0) fL MCH (27.0-33.0) pg MCHC (31.0-35.0) g/dl RDW (11.0-16.0) % Plt Count (160-400) X10*3/uL MPV (9.4-12.3) fL Immature Gran % (Auto) (0.0-0.4) % Neut % (Auto) (45-73) % Lymph % (Auto) (20-40) % Swain % (Auto) (2-11) % Eos % (Auto) (0-4) % Baso % (Auto) (0-2) % Lymph # (Auto) (1.2-4.9) X10*3/uL Swain # (Auto) (0.1-1.2) X10*3/uL Eos # (Auto) (0.0-0.4) X10*3/uL Baso # (Auto) (0.0-0.2) X10*3/uL Abs Immat Gran (auto) (0.00-0.03) X10*3/uL Absolute Neuts (auto) (2.0-8.3) x10*3/uL Absolute Nucleated RBC (0.0-0.012) X10*3/uL Nucleated RBC % (auto) (0.0-0.2) /100WBC ESR (0-20) MM/HR Sodium (135-145) mmol/L Potassium (3.3-5.1) mmol/L Chloride (96-108) mmol/L Carbon Dioxide (22-29) mmol/L Anion Gap (12-20) BUN (9-16) mg/dL Creatinine (0.5-1.4) mg/dL Estim Creat Clear Calc Estimated GFR Random Glucose (60-115) mg/dL Lactic Acid 2.9 H* (0.5-2.0) mmol/L Lactic Acid F/U @ 2Hr 1.5 (0.5-2.0) mmol/L Calcium (8.4-10.2) mg/dL C-Reactive Protein (< or = 0.50) mg/dL Independent Interpretation I performed an independent interpretation of an: Plain X-Ray and Ultrasound Interpretation: I independently reviewed the x-ray of the left elbow which shows no acute fracture I independently reviewed the ultrasound left upper extremity which shows no acute DVT. We Radiology Impression Discussion of test interpretation with radiology: I have reviewed the radiologist's reading. Radiologist Impression: COMPARISON: None? TECHNIQUE: AP, lateral, and oblique views of the left elbow. Today's examination is limited secondary to difficulties with patient positioning FINDINGS: No gross fracture or dislocation. No joint effusion. No focal soft tissue swelling. No radiopaque foreign body.? XR/XR elbow LT 2V IMPRESSION: Unremarkable radiographs of the left elbow. [place] [id number] Ultrasound Report Signed Patient: Sheree Govea MR#: [id number] : 1950 Acct:[id number] Age/Sex: 72 / F ADM Date: 08/10/22 Loc: .ED Attending Dr: Ordering Physician: Rufina Acosta NP Date of Service: 08/10/22 Procedure(s): US venous duplex UE Accession Number(s): [id number] cc: Rufina Acosta NP~ EXAMINATION:? US VENOUS WITH DOPPLER UPPER EXTREMITY, LEFT CLINICAL INFORMATION:? Left upper extremity swelling. COMPARISON:? None TECHNIQUE: Ultrasound of the upper extremity is performed using compression sonography and color and pulse Doppler flow with assessment of augmentation of flow. There is also imaging and Doppler assessment of the jugular and subclavian veins. Spectral analysis with color-flow imaging is performed. FINDINGS: Respiratory variation, normal compression, and augmented flow are noted throughout the upper extremity including the axillary, brachial, cubital, and ulnar veins. Radial veins not well seen. 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 There is normal flow in the internal jugular and subclavian veins. There is no visible deep or superficial thrombophlebitis. Distal forearm subcutaneous edema. If the patient's symptoms progress, a followup ultrasound in 5 -7 days might be of value to exclude proximal propagation from a nonvisualized distal arm vein. US/US venous duplex UE LT IMPRESSION: No DVT demonstrated in the left upper extremity. ? Independent Historian Clinical information obtained from an independent historian. History obtained from or confirmed by: Other ([facility] staff) Discharge Plan Discharge Clinical Impression: Elbow pain, left Patient Disposition: Home, Self-Care Instructions: Arthralgia (ED), Heat Pack Application (ED) Additional Instructions: The ultrasound shows no blood clot. The x-ray shows no fracture, lab work is normal Please follow-up with your primary care doctor outpatient Continue Tylenol for pain, take oxycodone only as needed Prescriptions: New oxycodone 5 mg tablet 5 mg PO Q6H PRN (Reason: pain) Qty: 8 0RF Rx Instructions: Partial Fill upon patient request. No Action acetaminophen 325 mg Tablet 650 mg PO Q6H PRN (Reason: Fever Or Pain) dantrolene 25 mg capsule 25 mg PO BEDTIME magnesium oxide 400 mg (241.3 mg magnesium) tablet 1 tab PO DAILY omeprazole 20 mg capsule,delayed release(DR/EC) 1 cap PO DAILY calcium carbonate-vitamin D3 [Oyster Shell Calcium-Vit D3] 500 mg-5 mcg (200 unit) tablet 1 tab PO BID Reguloid (psyllium husk) 3 gram/5.4 gram powder 1 tsp PO DAILY guaifenesin 100 mg/5 mL Liquid 200 mg PO Q4H PRN (Reason: Cough) Referrals: Aliosn Avelar NP [Primary Care Provider] - 1 week
[2022-08-10 09:50] LABS: MANUAL DIFF FLAG NO
[2022-08-10 09:55] LABS: Basophils Percent Auto 0.5 % (0-2); Eosinophils Absolute Auto 0.1 X10*3/uL (0.0-0.4); Eosinophils Percent Auto 1.6 % (0-4); Hemoglobin 13.9 g/dl (12.0-16.0); Imm Gran Abs Auto 0.01 X10*3/uL (0.00-0.03); Imm Gran Pct Auto 0.2 % (0.0-0.4); Lymphocytes Absolute Auto 1.4 X10*3/uL (1.2-4.9); Lymphocytes Percent Auto 25.2 % (20-40); Mean Corpuscular HGB Conc 33.1 g/dl (31.0-35.0); Mean Corpuscular Hemoglobin 32.3 pg (27.0-33.0); Mean Corpuscular Volume 97.4 fL (80.0-98.0); Mean Platelet Volume 9.4 fL (9.4-12.3); Monocytes Absolute Auto 0.5 X10*3/uL (0.1-1.2); Monocytes Percent Auto 8.4 % (2-11); Neutrophils Absolute Auto 3.6 x10*3/uL (2.0-8.3); Neutrophils Percent Auto 64.1 % (45-73); Platelet Count 308 X10*3/uL (160-400); Red Blood Count 4.31 X10*6/uL (4.20-5.50); Red Cell Distribution Width 12.3 % (11.0-16.0); White Blood Count 5.6 X10*3/uL (4.8-10.8)
[2022-08-10] MEDS: Acetaminophen 325 MG TABLET 650 MG PO (10:11)
[2022-08-10 10:37] LABS: Erythrocyte Sedimentation Rate 6 MM/HR (0-20)
[2022-08-10 10:46] LABS: Anion Gap 15 (12-20); Blood Urea Nitrogen 9 mg/dL (9-16); C Reactive Protein < 0.04 mg/dL (< or = 0.50); Calcium 9.4 mg/dL (8.4-10.2); Carbon Dioxide 24 mmol/L (22-29); Chloride 110 mmol/L (96-108); Creatinine Clr Calc Pharmacy 61.5; Estimated Glomerular Filt Rate > 60; Glucose Random 113 mg/dL (60-115); Potassium 3.6 mmol/L (3.3-5.1); Sodium 145 mmol/L (135-145)
[2022-08-10 10:50] LABS: Lactic Acid 2.9 mmol/L (0.5-2.0)
[2022-08-10] MEDS: oxyCODONE HCl Immed Release 5 MG TABLET PO (11:11)
[2022-08-10 11:48] LABS: Reflex Lactate? Lactic Acid Added
[2022-08-10 12:23] VITALS: BP 141/87; PULSE 71; RESP 16; O2SAT 95
[2022-08-10 12:45] LABS: ~Lactic Acid-LAB USE ONLY 1.5 mmol/L (0.5-2.0)
[2022-08-10 13:32] VITALS: BP 168/105; PULSE 78; RESP 16; TEMP 37.6; O2SAT 100
[2022-08-10 15:35] VITALS: BP 157/91; PULSE 79; RESP 16; TEMP 36.6; O2SAT 97
--- NOTE | 2022-08-10 15:36 | MHC.EDTECH ---
THIS PCT ASSUMED CARE OF PATIENT AT 1500 ,VITALS SIGN TAKEN ,EMS HERE TO TRANSPORT PATIENT TO A LONG-TERM .
== END 2022-08-10 15:42 | disposition home or self-care (01) ==
PROVIDERS: Nurse Practitioner Family; Emergency Provider Emergency Medicine; PCP Registered Nurse
DX: M25.522 Pain in left elbow (principal); M79.89 Other specified soft tissue disorders
CPT/HCPCS: 36415; 73070; 80048; 83605; 85025; 85652; 86140; 87040; 93971; 99284

== ENCOUNTER 2022-09-04 13:15 | Outpatient (REF) | payer MEDICARE, MEDICAID, SELFPAY ==
--- NOTE | ~2022-09-04 | XR_ITS ---
EXAMINATION: LEFT KNEE AND FEMUR CLINICAL INFORMATION: Left knee pain COMPARISON: None TECHNIQUE: AP and lateral views of the knee and AP and lateral views of the left femur. Study is limited due to patient being disabled in a wheelchair and unable to cooperate for study. FINDINGS: On the provided films no definite acute fracture or dislocation is evident of the left knee. No left knee effusion is seen. There is spurring of the patellofemoral joint. There is also prominent bony density about the medial femoral condyle which may be related to previous trauma or an exostosis but is more likely posttraumatic in nature. There is a bony fragment about the medial condyle consistent with previous medial collateral ligament injury. There is mild narrowing of the medial joint space compartment. An old mild tibial plateau compression fracture cannot be excluded on the provided imaging however since there is no effusion this is likely not an acute process. There is no evidence of acute fracture or dislocation of the left femur. No destructive bony lesions identified. Distal femoral changes as described in the knee portion of report. The hip joint space is maintained. There is some spurring seen about the lateral left ilium with the appearance of being related to enthesopathy. XR/XR femur LT 2V IMPRESSION: Chronic changes of the left knee as described. No acute fracture or destructive lesion appreciated.
--- NOTE | ~2022-09-04 | XR_ITS ---
EXAMINATION: LEFT KNEE AND FEMUR CLINICAL INFORMATION: Left knee pain COMPARISON: None TECHNIQUE: AP and lateral views of the knee and AP and lateral views of the left femur. Study is limited due to patient being disabled in a wheelchair and unable to cooperate for study. FINDINGS: On the provided films no definite acute fracture or dislocation is evident of the left knee. No left knee effusion is seen. There is spurring of the patellofemoral joint. There is also prominent bony density about the medial femoral condyle which may be related to previous trauma or an exostosis but is more likely posttraumatic in nature. There is a bony fragment about the medial condyle consistent with previous medial collateral ligament injury. There is mild narrowing of the medial joint space compartment. An old mild tibial plateau compression fracture cannot be excluded on the provided imaging however since there is no effusion this is likely not an acute process. There is no evidence of acute fracture or dislocation of the left femur. No destructive bony lesions identified. Distal femoral changes as described in the knee portion of report. The hip joint space is maintained. There is some spurring seen about the lateral left ilium with the appearance of being related to enthesopathy. XR/XR knee LT 2V IMPRESSION: Chronic changes of the left knee as described. No acute fracture or destructive lesion appreciated.
== END 2022-09-04 13:16 | disposition home or self-care (01) ==
LOC: HO.HMGCX 13:15
PROVIDERS: PCP Registered Nurse; Visit Provider Nurse Practitioner Family
DX: M25.562 Pain in left knee (principal); M25.462 Effusion, left knee
CPT/HCPCS: 73552; 73560

== ENCOUNTER 2023-03-13 11:55 | Emergency (ER) | payer MEDICARE, MEDICAID, SELFPAY ==
[2023-03-13 12:13] VITALS: BP 133/84; PULSE 76; RESP 16; TEMP 37.2; O2SAT 96; BMI 15.4
--- NOTE | 2023-03-13 12:16 | ED.GENADULT ---
HPI - General Adult General Chief complaint: Urogenital-Female Stated complaint: ?UTI Time Seen by Provider: 03/13/23 13:16 Source: patient Mode of arrival: ambulatory Limitations: no limitations History of Present Illness HPI narrative: 72 yo female with history of cerebral palsy and spina bifida, nonverbal and wheelchair bound who presents to the ER from her day program for evaluation of foul smelling urine and decreased UOP for the last 1 day. No fevers, chills, vomiting, diarrhea. MD complaint: foul smelling urine Onset (ago): day(s) (1) Relieving factors: none Exacerbating factors: none Associated symptoms: denies other symptoms Treatments prior to arrival: none Related Data Home Medications Medication Instructions Recorded Confirmed acetaminophen 325 mg tablet 650 mg PO Q6H PRN Fever Or Pain 03/26/22 03/26/22 calcium carbonate 500 mg-vitamin 1 tab PO BID 03/26/22 03/26/22 D3 5 mcg (200 unit) tablet (Oyster Shell Calcium-Vitamin D3) dantrolene 25 mg capsule 25 mg PO BEDTIME 03/26/22 03/26/22 magnesium oxide 400 mg (241.3 mg 1 tab PO DAILY 03/26/22 03/26/22 magnesium) tablet omeprazole 20 mg capsule,delayed 1 cap PO DAILY 03/26/22 03/26/22 release psyllium husk 3 gram/5.4 gram oral 1 tsp PO DAILY 03/26/22 03/26/22 powder (Reguloid (psyllium husk)) Previous Rx's Medication Instructions Recorded bismuth tribrom-petrolatum,wh 2 X #20 ea 01/07/23 2 bandage (Xeroform Petrolatum Dressing) cefuroxime axetil 250 mg tablet 250 mg PO BID 7 days #14 tabs 03/13/23 Allergies Allergy/AdvReac Type Severity Reaction Status Date / Time No Known Allergies Allergy Verified 03/13/23 12:16 Review of Systems Review of Systems: Yes all other systems are reviewed and are negative PMFSH Past Medical History Source: old records reviewed and nursing notes reviewed Medical History Cerebral palsy Social History Social History Advance Directives: No Advance Directives Information Provided: No Physical Exam ED Vital Signs: Vital Signs - 24 hr 03/13/23 12:13 03/13/23 14:27 Temperature 98.9 F Pulse Rate 76 74 Respiratory Rate 16 17 Blood Pressure 133/84 124/76 Pulse Oximetry 96 96 Oxygen Delivery Method Room Air Room Air BMI result Body Mass Index 15.4 Appearance: contracted, elderly female, nonverbal, no distress HEENT: normal inspection CVS: Normal heart rate and rhythm. Pulses normal. Respiratory: No respiratory distress. Lungs CTAB Skin: Skin warm and dry. Normal skin color. Normal skin turgor. No rashes. Abd: thin, soft, nontender, normal BS Extremities: contracted UE bilaterally. Neuro: awake and alert, at patient's baseline Course Course Course Narrative: RME: 72 yold female with CErebral palsy presents to the ED for foul odor UA. patient's Day Care once patient evaluated. labs and UA Medications Administered Discontinued Medications Generic Name Dose Route Start Last Admin Trade Name Freq PRN Reason Stop Dose Admin Cefuroxime Axetil 250 mg 03/13/23 14:11 03/13/23 14:22 Cefuroxime Axetil 250 Mg Tablet PO 03/13/23 14:12 250 mg ONCE ONE Administration Medical Decision Making Medical Decision Making MDM Narrative: 72 yo female presenting with decreased YUOP and foul smelling urine x1 day. VSS on arrival. no leukocytosis on labs. UA with ++infection. no evidence of sepsis at this time stable for d/c home with PO abx paperwork for halfway completed. Differential Diagnosis Differential Diagnoses: The differential diagnosis associated with the presentation includes UTI, dehydration, urinary retention, pyelonephritis, STEPHANIE Lab Data [facility] Lab Attestation statement: I reviewed the patient's lab results. normal renal function, no leukocytosis 03/13/23 12:37 03/13/23 12:37 Labs: Lab Results 03/13/23 03/13/23 03/13/23 Range/Units 12:37 12:37 13:51 WBC 6.8 (4.8-10.8) X10*3/uL RBC 3.97 L (4.20-5.50) X10*6/uL Hgb 13.4 (12.0-16.0) g/dl Hct 40.6 (37.0-47.0) % MCV 102.3 H (80.0-98.0) fL MCH 33.8 H (27.0-33.0) pg MCHC 33.0 (31.0-35.0) g/dl RDW 11.6 (11.0-16.0) % Plt Count 324 (160-400) X10*3/uL MPV 9.6 (9.4-12.3) fL Immature Gran % (Auto) 0.3 (0.0-0.4) % Neut % (Auto) 69.9 (45-73) % Lymph % (Auto) 20.1 (20-40) % [place] % (Auto) 7.9 (2-11) % Eos % (Auto) 1.2 (0-4) % Baso % (Auto) 0.6 (0-2) % Lymph # (Auto) 1.4 (1.2-4.9) X10*3/uL [place] # (Auto) 0.5 (0.1-1.2) X10*3/uL Eos # (Auto) 0.1 (0.0-0.4) X10*3/uL Baso # (Auto) 0.0 (0.0-0.2) X10*3/uL Abs Immat Gran (auto) 0.02 (0.00-0.03) X10*3/uL Absolute Neuts (auto) 4.8 (2.0-8.3) x10*3/uL Absolute Nucleated RBC 0.000 (0.0-0.012) X10*3/uL Nucleated RBC % (auto) 0.0 (0.0-0.2) /100WBC Sodium 144 (135-145) mmol/L Potassium 3.9 (3.3-5.1) mmol/L Chloride 111 H (96-108) mmol/L Carbon Dioxide 26 (22-29) mmol/L Anion Gap 11 L (12-20) BUN 16 (9-16) mg/dL Creatinine 0.74 (0.5-1.4) mg/dL Estim Creat Clear Calc 38.5 Estimated GFR > 60 Random Glucose 113 (60-115) mg/dL Calcium 9.3 (8.4-10.2) mg/dL Total Bilirubin 0.3 (0.0-1.0) mg/dL AST 16 (5-31) U/L ALT 13 (0-31) U/L Alkaline Phosphatase 110 (39-117) U/L Total Protein 6.6 (6.5-8.0) g/dL Albumin 3.6 (3.5-5.0) g/dL Urine Color Yellow Urine Appearance Turbid Urine pH 7.5 (5.0-9.0) Ur Specific [place] 1.015 (1.005-1.025) Urine Protein 30 (1+) H (Neg-Trace) mg/dL Urine Glucose (UA) Negative (Negative) mg/dL Urine Ketones Negative (Negative) mg/dL Urine Blood Moderate (2+) H (Negative) Urine Nitrite Positive H (Negative) Ur Leukocyte Esterase Large (3+) H (Negative) Urine RBC 11-20 H (0-2) /HPF Urine WBC >50 H (0-5) /HPF Urine WBC Clumps Present Ur Squamous Epith Cells 0-2 (0-2) /HPF Urine Bacteria 4+ (None Seen) Hyaline Casts 3-5 (0-2) /LPF Independent Historian Clinical information obtained from an independent historian. History obtained from or confirmed by: Other (halfway staff) External Record Review External record reviewed: Outpatient record Prescription Management I considered prescription management with: Antibiotic Chronic Conditions Patient?s care impacted by: Other (CP) Critical Care Time Critical Care Time Critical Care Time: No Discharge Plan Discharge Clinical Impression: Urinary tract infection Patient Disposition: Home, Self-Care Instructions: Urinary Tract Infection in Older Adults (ED) Additional Instructions: Take the prescribed antibiotics as directed, complete the entire course and do not miss any doses drink plenty of fluids follow up with your doctor as needed If you develop new or worsening symptoms call 911 or come back to the ER for further evaluation. Prescriptions: New cefuroxime axetil 250 mg tablet 250 mg PO BID 7 Days Qty: 14 0RF No Action acetaminophen 325 mg Tablet 650 mg PO Q6H PRN (Reason: Fever Or Pain) dantrolene 25 mg capsule 25 mg PO BEDTIME magnesium oxide 400 mg (241.3 mg magnesium) tablet 1 tab PO DAILY omeprazole 20 mg capsule,delayed release(DR/EC) 1 cap PO DAILY calcium carbonate-vitamin D3 [Oyster Shell Calcium-Vit D3] 500 mg-5 mcg (200 unit) tablet 1 tab PO BID Reguloid (psyllium husk) 3 gram/5.4 gram powder 1 tsp PO DAILY (DME) Xeroform Petrolatum Dressing 2 X 2 bandage See Rx Instructions .Route Qty: 20 0RF Rx Instructions: Apply to affected area once daily Interventions: ED Discharge Assessment Last Done: 03/13/23 14:30 Discharge Date/Time: 03/13/23 14:32
[2023-03-13 12:43] LABS: MANUAL DIFF FLAG NO
[2023-03-13 12:44] LABS: Basophils Percent Auto 0.6 % (0-2); Eosinophils Absolute Auto 0.1 X10*3/uL (0.0-0.4); Eosinophils Percent Auto 1.2 % (0-4); Hematocrit 40.6 % (37.0-47.0); Hemoglobin 13.4 g/dl (12.0-16.0); Imm Gran Abs Auto 0.02 X10*3/uL (0.00-0.03); Imm Gran Pct Auto 0.3 % (0.0-0.4); Lymphocytes Absolute Auto 1.4 X10*3/uL (1.2-4.9); Lymphocytes Percent Auto 20.1 % (20-40); Mean Corpuscular Hemoglobin 33.8 pg (27.0-33.0); Mean Corpuscular Volume 102.3 fL (80.0-98.0); Mean Platelet Volume 9.6 fL (9.4-12.3); Monocytes Absolute Auto 0.5 X10*3/uL (0.1-1.2); Monocytes Percent Auto 7.9 % (2-11); Neutrophils Absolute Auto 4.8 x10*3/uL (2.0-8.3); Neutrophils Percent Auto 69.9 % (45-73); Platelet Count 324 X10*3/uL (160-400); Red Blood Count 3.97 X10*6/uL (4.20-5.50); Red Cell Distribution Width 11.6 % (11.0-16.0); White Blood Count 6.8 X10*3/uL (4.8-10.8)
[2023-03-13 12:57] LABS: Alanine Aminotransferase 13 U/L (0-31); Albumin Level 3.6 g/dL (3.5-5.0); Alkaline Phosphatase 110 U/L (39-117); Anion Gap 11 (12-20); Aspartate Amino Transferase 16 U/L (5-31); Bilirubin Total 0.3 mg/dL (0.0-1.0); Blood Urea Nitrogen 16 mg/dL (9-16); Calcium 9.3 mg/dL (8.4-10.2); Carbon Dioxide 26 mmol/L (22-29); Chloride 111 mmol/L (96-108); Creatinine Clr Calc Pharmacy 38.5; Estimated Glomerular Filt Rate > 60; Glucose Random 113 mg/dL (60-115); Potassium 3.9 mmol/L (3.3-5.1); Sodium 144 mmol/L (135-145); Total Protein 6.6 g/dL (6.5-8.0)
[2023-03-13 14:00] LABS: Appearance Urine Turbid; Color Urine Yellow; Glucose Urine UA Negative (Negative); Leukocyte Esterase Urine Large (3+) (Negative); Nitrite Urine Positive (Negative); PH 7.5 (5.0-9.0); Specific Gravity - Urine 1.015 (1.005-1.025); UMIC TRIGGER UACC YES; Urine Blood Moderate (2+) (Negative); Urine Ketones Negative (Negative); Urine Protein 30 (1+) mg/dL (Neg-Trace)
[2023-03-13 14:15] LABS: Bacteria Urine 4+ (None Seen); Squamous Epithelial Cell Urine 0-2 /HPF (0-2); UACC Culture Trigger YES; WBC Clumps Urine Present; WBC Urine >50 /HPF (0-5)
[2023-03-13 14:27] VITALS: BP 124/76; PULSE 74; RESP 17; O2SAT 96
== END 2023-03-13 14:32 | disposition home or self-care (01) ==
PROVIDERS: Physician Assistant; Emergency Provider Emergency Medicine; PCP Registered Nurse
DX: N39.0 Urinary tract infection, site not specified (principal); B96.20 Unspecified Escherichia coli [E. coli] as the cause of diseases classified elsewhere; B96.4 Proteus (mirabilis) (morganii) as the cause of diseases classified elsewhere; G80.9 Cerebral palsy, unspecified; Z79.899 Other long term (current) drug therapy
CPT/HCPCS: 36415; 51701; 80053; 81001; 81003; 85025; 87086; 87088; 87186; 99283; 99284

== ENCOUNTER 2023-03-18 12:34 | Outpatient (REF) | payer MEDICARE, MEDICAID, SELFPAY ==
[2023-03-18 12:45] LABS: MANUAL DIFF FLAG NO
[2023-03-18 13:41] LABS: Basophils Absolute Auto 0.1 X10*3/uL (0.0-0.2); Basophils Percent Auto 0.8 % (0-2); Eosinophils Absolute Auto 0.1 X10*3/uL (0.0-0.4); Eosinophils Percent Auto 1.2 % (0-4); Hematocrit 39.3 % (37.0-47.0); Hemoglobin 13.1 g/dl (12.0-16.0); Imm Gran Abs Auto 0.01 X10*3/uL (0.00-0.03); Imm Gran Pct Auto 0.2 % (0.0-0.4); Lymphocytes Absolute Auto 1.4 X10*3/uL (1.2-4.9); Lymphocytes Percent Auto 20.4 % (20-40); Mean Corpuscular HGB Conc 33.3 g/dl (31.0-35.0); Mean Corpuscular Hemoglobin 34.1 pg (27.0-33.0); Mean Corpuscular Volume 102.3 fL (80.0-98.0); Mean Platelet Volume 10.2 fL (9.4-12.3); Monocytes Absolute Auto 0.6 X10*3/uL (0.1-1.2); Monocytes Percent Auto 9.2 % (2-11); Neutrophils Absolute Auto 4.6 x10*3/uL (2.0-8.3); Neutrophils Percent Auto 68.2 % (45-73); Platelet Count 299 X10*3/uL (160-400); Red Blood Count 3.84 X10*6/uL (4.20-5.50); Red Cell Distribution Width 11.8 % (11.0-16.0); White Blood Count 6.7 X10*3/uL (4.8-10.8)
[2023-03-18 15:04] LABS: Alanine Aminotransferase 14 U/L (0-31); Albumin Level 3.5 g/dL (3.5-5.0); Alkaline Phosphatase 96 U/L (39-117); Anion Gap 11 (12-20); Aspartate Amino Transferase 16 U/L (5-31); Bilirubin Total 0.4 mg/dL (0.0-1.0); Blood Urea Nitrogen 14 mg/dL (9-16); Calcium 9.2 mg/dL (8.4-10.2); Carbon Dioxide 24 mmol/L (22-29); Chloride 111 mmol/L (96-108); Estimated Glomerular Filt Rate > 60; Glucose Random 132 mg/dL (60-115); Potassium 3.4 mmol/L (3.3-5.1); Sodium 143 mmol/L (135-145); Total Protein 5.8 g/dL (6.5-8.0)
[2023-03-18 15:10] LABS: Free T4 (Free Thyroxine) 1.19 ng/dL (0.71-1.85); Thyroid Stimulating Hormone 1.01 uIU/mL (0.32-4.0)
== END 2023-03-18 12:35 | disposition home or self-care (01) ==
LOC: HO.LAB 12:34
PROVIDERS: PCP Internal Medicine; Visit Provider Internal Medicine
DX: E46 Unspecified protein-calorie malnutrition (principal); R13.10 Dysphagia, unspecified; R63.4 Abnormal weight loss; M62.838 Other muscle spasm
CPT/HCPCS: 36415; 80053; 84439; 84443; 85025

== ENCOUNTER 2023-06-06 14:48 | Emergency (ER) | payer MEDICARE, MEDICAID, SELFPAY ==
--- NOTE | 2023-06-06 14:54 | ED.GENADULT ---
HPI - General Adult General Chief complaint: Urogenital-Female Stated complaint: UTI? Time Seen by Provider: 06/06/23 16:36 Source: other ([facility] staff member) Limitations: physical limitation History of Present Illness HPI narrative: 72 years old with history of cerebral palsy, spina bifida, nonverbal at baseline and wheelchair-bound, presents emergency room for complaining of foul-smelling urine. According to nursing staff she has also seems to be more in pain when they were changing her diaper. Patient had a temperature of 100? for night on arrival, does not appear in distress, no reported episode of vomiting. No increased respiratory effort. No recent falls. Related Data Home Medications Medication Instructions Recorded Confirmed acetaminophen 325 mg tablet 650 mg PO Q6H PRN Fever Or Pain 03/26/22 03/26/22 calcium carbonate 500 mg-vitamin 1 tab PO BID 03/26/22 03/26/22 D3 5 mcg (200 unit) tablet (Oyster Shell Calcium-Vitamin D3) dantrolene 25 mg capsule 25 mg PO BEDTIME 03/26/22 03/26/22 magnesium oxide 400 mg (241.3 mg 1 tab PO DAILY 03/26/22 03/26/22 magnesium) tablet omeprazole 20 mg capsule,delayed 1 cap PO DAILY 03/26/22 03/26/22 release psyllium husk 3 gram/5.4 gram oral 1 tsp PO DAILY 03/26/22 03/26/22 powder (Reguloid (psyllium husk)) Previous Rx's Medication Instructions Recorded bismuth tribrom-petrolatum,wh 2 X #20 ea 01/07/23 2 bandage (Xeroform Petrolatum Dressing) cefuroxime axetil 250 mg tablet 250 mg PO BID 7 days #14 tabs 03/13/23 levofloxacin 750 mg tablet 750 mg PO DAILY #5 tabs 06/06/23 Allergies Allergy/AdvReac Type Severity Reaction Status Date / Time No Known Allergies Allergy Verified 06/06/23 14:59 Review of Systems Review of Systems: Yes Unobtainable due to mental condition PMFSH Past Medical History Medical History Cerebral palsy Social History Advance Directives: No Advance Directives Information Provided: No Physical Exam ED Vital Signs: Vital Signs - 24 hr 06/06/23 14:55 06/06/23 16:40 Temperature 100.3 F 100.0 F Pulse Rate 83 93 Respiratory Rate 14 20 Blood Pressure 123/79 Pulse Oximetry 97 97 Oxygen Delivery Method Room Air BMI result Body Mass Index 16.0 General: Alert, Not in Distress Skin: No rash, warm HEENT: Atraumatic, No Exudate or Pharyngeal Erythema Resp: Normal Breath sounds bilaterally Cardio: Regular rate and Rhythm, Normal S1, S2 ABD: Abd soft, non tender, no guarding or rebound. Normal Bowel sounds. : No cva tenderness Neuro: Alert, not verbal at baseline but able to interct with eyes upper extremities are flexed and contracteed with severe muscle waisting as per baseline per staff at bedside lower extremity also show severe muscle waisting contracted not changed from baseline Psych: Cooperative, NO SI Course Course Course Narrative: This is a rapid medical exam: Additional HPI, ROS, PE not included below will be deferred to primary provider. Patient is a 73-year-old female presenting to the ED with STRUCTURAL STEEL ENGINEER who reports that patient's day program reported foul smelling urine on Friday, last night patient was crying/agitated. STRUCTURAL STEEL ENGINEER denies any abnormal discharge, denies fevers. STRUCTURAL STEEL ENGINEER states patient was prescribed ceftin around 2 weeks ago but did not seem to resolve sxs. If patient d/c'd after 5pm, rxs to [facility] [address] in [place] Plan: UA Reevaluation(s) Reevaluation #1: Patient has remained stable and urinalysis is consistent with UTI. Patient has use ceftin recently and staff reports no improvement. Based on last urine culture will is discharge patient on a ciprofloxacin I think patient is a good candidate for outpatient treatment at this time wanting she requires further observation or admission. Time: 17:24 Medical Decision Making Medical Decision Making [facility] Narrative: 72 years old presented to the emergency room for possible UTI. Patient had prior history of UTI, does not appear to be in discomfort, she had low-grade fever on arrival. Will check urine, give Tylenol and gabapentin as on medication. Patient is not septic. Plan UA with straight catheterization Analgesia Reassess Admission/Observation Consideration of admission/observation: Escalation of care including admission/observation considered Lab Data [facility] Lab Attestation statement: I reviewed the patient's lab results. Labs: Lab Results 06/06/23 Range/Units 16:43 Urine Color Yellow Urine Appearance Cloudy Urine pH 7.5 (5.0-9.0) Ur Specific [place] 1.010 (1.005-1.025) Urine Protein 30 (1+) H (Neg-Trace) mg/dL Urine Glucose (UA) Negative (Negative) mg/dL Urine Ketones Negative (Negative) mg/dL Urine Blood Moderate (2+) H (Negative) Urine Nitrite Negative (Negative) Ur Leukocyte Esterase Large (3+) H (Negative) Urine RBC 11-20 H (0-2) /HPF Urine WBC >50 H (0-5) /HPF Ur Squamous Epith Cells 0-2 (0-2) /HPF Urine Bacteria 4+ (None Seen) Hyaline Casts 11-20 (0-2) /LPF External Record Review External record reviewed: Office record, Outpatient record and Prior outpatient labs Prescription Management I considered prescription management with: Antibiotic Social Determinants [facility] resident Discharge Plan Discharge Clinical Impression: Urinary tract infection Patient Disposition: Home, Self-Care Instructions: Acute Urinary Retention in Women (ED) Additional Instructions: Patient was diagnosed with a UTI. Given the fact that she did not respond well to Ceftin with prescribed levofloxacin that shows take for the next 5 days. Return to the emergency room if symptoms worsen, if patient develops vision abdominal pain or does not tolerate p.o. medication. Follow-up with primary care physician at the end of the antibiotic course Prescriptions: New levofloxacin 750 mg tablet 750 mg PO DAILY Qty: 5 0RF No Action acetaminophen 325 mg Tablet 650 mg PO Q6H PRN (Reason: Fever Or Pain) dantrolene 25 mg capsule 25 mg PO BEDTIME magnesium oxide 400 mg (241.3 mg magnesium) tablet 1 tab PO DAILY omeprazole 20 mg capsule,delayed release(DR/EC) 1 cap PO DAILY calcium carbonate-vitamin D3 [Oyster Shell Calcium-Vit D3] 500 mg-5 mcg (200 unit) tablet 1 tab PO BID Reguloid (psyllium husk) 3 gram/5.4 gram powder 1 tsp PO DAILY cefuroxime axetil 250 mg tablet 250 mg PO BID 7 Days Qty: 14 0RF (DME) Xeroform Petrolatum Dressing 2 X 2 bandage See Rx Instructions .Route Qty: 20 0RF Rx Instructions: Apply to affected area once daily Referrals: Valentín Webb MD [Primary Care Provider] -
[2023-06-06 14:55] VITALS: BP 123/79; PULSE 83; RESP 14; TEMP 37.9; O2SAT 97; BMI 16.0
[2023-06-06 16:40] VITALS: PULSE 93; RESP 20; TEMP 37.8; O2SAT 97
[2023-06-06 16:53] LABS: Appearance Urine Cloudy; Color Urine Yellow; Glucose Urine UA Negative (Negative); Leukocyte Esterase Urine Large (3+) (Negative); Nitrite Urine Negative (Negative); PH 7.5 (5.0-9.0); UMIC TRIGGER UACC YES; Urine Blood Moderate (2+) (Negative); Urine Ketones Negative (Negative); Urine Protein 30 (1+) mg/dL (Neg-Trace)
[2023-06-06 17:10] LABS: Bacteria Urine 4+ (None Seen); Squamous Epithelial Cell Urine 0-2 /HPF (0-2); UACC Culture Trigger YES; WBC Urine >50 /HPF (0-5)
[2023-06-06] MEDS: Acetaminophen 325 MG TABLET 975 MG PO (17:47)
[2023-06-06] MEDS: Gabapentin 100 MG CAPSULE PO (17:48)
[2023-06-06 18:01] LABS: Influenza A PCR NEGATIVE (Negative); Influenza B PCR NEGATIVE (Negative); Resp Syncy Virus RNA Qual PCR NEGATIVE (Negative); SARS COV2 PCR INHOUSE NEGATIVE (Negative)
== END 2023-06-06 18:08 | disposition home or self-care (01) ==
PROVIDERS: Registered Nurse Emergency; Emergency Provider Student in an Organized Health Care Education/Training Program; PCP Internal Medicine
DX: N39.0 Urinary tract infection, site not specified (principal); R50.9 Fever, unspecified; Z20.822 Contact with and (suspected) exposure to COVID-19; Z20.828 Contact with and (suspected) exposure to other viral communicable diseases; Z79.899 Other long term (current) drug therapy
CPT/HCPCS: 0241U; 51701; 81001; 87086; 87088; 87186; 99283; 99284

== ENCOUNTER 2023-06-26 08:50 | Inpatient (IN) | payer MEDICARE, MEDICAID, SELFPAY ==
--- NOTE | 2023-06-26 | ECG_ITS ---
Test Reason : BASELINE FOR SURGERY Blood Pressure : / mmHG Vent. Rate : 087 BPM Atrial Rate : 087 BPM P-R Int : 124 ms QRS Dur : 082 ms QT Int : 360 ms P-R-T Axes : 053 -40 059 degrees QTc Int : 433 ms Normal sinus rhythm Left axis deviation Nonspecific T wave abnormality Abnormal ECG When compared with ECG of 26-MAR-2022 12:07, No significant change was found Referred By: Luigi Cardoso Electronically Signed By:Patrick Walsh
--- NOTE | ~2023-06-26 | US_ITS ---
EXAMINATION: US VENOUS ULTRASOUND WITH DOPPLER LOWER EXTREMITY, LEFT CLINICAL INFORMATION: Swelling and medial left thigh COMPARISON: None available. TECHNIQUE: Ultrasound of the deep veins is performed from the hip to the calf with compression sonography and color and pulse Doppler assessment. Spectral analysis with color-flow imaging is performed. FINDINGS: There is normal venous compression and respiratory variation. The visualized common femoral vein, superficial femoral vein, profunda femoral vein, popliteal vein, and the trifurcation region shows no evidence of deep venous thrombosis. The contralateral common femoral vein demonstrates normal respiratory variation. US/US venous duplex LE LT IMPRESSION: No DVT demonstrated in the left lower extremity.
--- NOTE | ~2023-06-26 | XR_ITS ---
EXAMINATION: 1. CHEST X-RAY 2. PELVIC X-RAY CLINICAL INFORMATION: Fall. External rotation of the left leg. Preop. COMPARISON: Left femur x-rays September 04, 2022 and chest x-ray March 26, 2022 TECHNIQUE: Frontal view of the chest and frontal view of the pelvis were obtained. FINDINGS: Chest x-ray: Cardiac silhouette is normal in size. The lungs are well aerated. There is no lobar consolidation. No pleural effusion or pneumothorax. Pelvic x-ray: Comminuted intertrochanteric fracture of the left femoral head with mild impaction noted on this single view. Subacute, partially healing fracture of the left inferior pubic ramus. XR/XR pelvis 1-2V IMPRESSION: 1. No acute pulmonary pathology. 2. Comminuted intertrochanteric fracture of the left femoral head with mild impaction.
--- NOTE | ~2023-06-26 | XR_ITS ---
EXAMINATION: 1. CHEST X-RAY 2. PELVIC X-RAY CLINICAL INFORMATION: Fall. External rotation of the left leg. Preop. COMPARISON: Left femur x-rays September 04, 2022 and chest x-ray March 26, 2022 TECHNIQUE: Frontal view of the chest and frontal view of the pelvis were obtained. FINDINGS: Chest x-ray: Cardiac silhouette is normal in size. The lungs are well aerated. There is no lobar consolidation. No pleural effusion or pneumothorax. Pelvic x-ray: Comminuted intertrochanteric fracture of the left femoral head with mild impaction noted on this single view. Subacute, partially healing fracture of the left inferior pubic ramus. XR/XR chest 1V IMPRESSION: 1. No acute pulmonary pathology. 2. Comminuted intertrochanteric fracture of the left femoral head with mild impaction.
[2023-06-26 09:01] VITALS: BP 152/85; PULSE 85; RESP 16; TEMP 37.3; O2SAT 97; BMI 14.8
[2023-06-26 09:16] LABS: MANUAL DIFF FLAG NO
[2023-06-26 09:21] LABS: Basophils Absolute Auto 0.1 X10*3/uL (0.0-0.2); Basophils Percent Auto 0.3 % (0-2); Eosinophils Percent Auto 0.2 % (0-4); Hematocrit 35.2 % (37.0-47.0); Hemoglobin 11.6 g/dl (12.0-16.0); Imm Gran Abs Auto 0.05 X10*3/uL (0.00-0.03); Imm Gran Pct Auto 0.3 % (0.0-0.4); Lymphocytes Absolute Auto 0.8 X10*3/uL (1.2-4.9); Lymphocytes Percent Auto 5.7 % (20-40); Mean Corpuscular Hemoglobin 32.8 pg (27.0-33.0); Mean Corpuscular Volume 99.4 fL (80.0-98.0); Mean Platelet Volume 9.1 fL (9.4-12.3); Monocytes Absolute Auto 1.1 X10*3/uL (0.1-1.2); Monocytes Percent Auto 7.8 % (2-11); Neutrophils Absolute Auto 12.4 x10*3/uL (2.0-8.3); Neutrophils Percent Auto 85.7 % (45-73); Platelet Count 615 X10*3/uL (160-400); Red Blood Count 3.54 X10*6/uL (4.20-5.50); Red Cell Distribution Width 13.4 % (11.0-16.0); White Blood Count 14.4 X10*3/uL (4.8-10.8)
[2023-06-26 09:26] VITALS: BP 158/93; PULSE 77; RESP 18
[2023-06-26 09:43] LABS: Anion Gap 15 (12-20); Blood Urea Nitrogen 17 mg/dL (9-16); Carbon Dioxide 23 mmol/L (22-29); Chloride 108 mmol/L (96-108); Creatinine Clr Calc Pharmacy 42.5; Estimated Glomerular Filt Rate > 60; Glucose Random 118 mg/dL (60-115); Potassium 3.2 mmol/L (3.3-5.1); Sodium 143 mmol/L (135-145)
--- NOTE | 2023-06-26 09:52 | PC.NURSE ---
patient bilat pedal pulses intact, cap refill less then 3 seconds. patient left leg is externally rotated, swollen. no reddness or warmth noted. patient grimaces when extremity is moved
[2023-06-26 10:22] LABS: INTERNATIONAL NORM RATIO 0.9 (0.9-1.1)
--- NOTE | 2023-06-26 10:49 | ED.EXTPRO ---
HPI - Extremity Problem General Chief complaint: Extremity Problem Stated complaint: l upper thigh leg swelling Time Seen by Provider: 06/26/23 09:12 Source: other Mode of arrival: EMS History of Present Illness HPI Narrative: 73-year-old female with history of cerebral palsy, bed-bound, undergoes [place] transfers and is brought in by staff with concerns regarding recently noticing that the left upper leg is swollen this morning, they deny any traumatic injuries, falls or equipment malfunction and states that patient has also been noticed to have an externally rotated left lower extremity. Patient is nonverbal at baseline. Related Data Home Medications Medication Instructions Recorded Confirmed acetaminophen 325 mg tablet 650 mg PO Q6H PRN Fever Or Pain 03/26/22 03/26/22 calcium carbonate 500 mg-vitamin 1 tab PO BID 03/26/22 03/26/22 D3 5 mcg (200 unit) tablet (Oyster Shell Calcium-Vitamin D3) dantrolene 25 mg capsule 25 mg PO BEDTIME 03/26/22 03/26/22 magnesium oxide 400 mg (241.3 mg 1 tab PO DAILY 03/26/22 03/26/22 magnesium) tablet omeprazole 20 mg capsule,delayed 1 cap PO DAILY 03/26/22 03/26/22 release psyllium husk 3 gram/5.4 gram oral 1 tsp PO DAILY 03/26/22 03/26/22 powder (Reguloid (psyllium husk)) Previous Rx's Medication Instructions Recorded bismuth tribrom-petrolatum,wh 2 X #20 ea 01/07/23 2 bandage (Xeroform Petrolatum Dressing) cefuroxime axetil 250 mg tablet 250 mg PO BID 7 days #14 tabs 03/13/23 Allergies Allergy/AdvReac Type Severity Reaction Status Date / Time No Known Allergies Allergy Verified 06/06/23 14:59 Review of Systems Review of Systems: Pertinent positives and negatives as stated in HPI PMFSH Past Medical History Source: nursing notes reviewed Medical History Cerebral palsy Social History Social History Advance Directives: No Advance Directives Information Provided: Yes Physical Exam Vital Signs: Vital Signs: Last Vital Signs Temp 99.2 F 06/26/23 09:01 Pulse 77 06/26/23 09:26 Resp 18 06/26/23 09:26 BP 158/93 H 06/26/23 09:26 Pulse Ox 97 06/26/23 09:01 O2 Del Method Room Air 06/26/23 09:01 BMI result Body Mass Index 14.8 VITAL SIGNS: Reviewed. GENERAL: Well nourished, in no acute distress. HEAD: Normocephalic/atraumatic EYES: PERRLA, EOMI EARS: Ext canals without abnormality NOSE: Nares patent bilateral OROPHARYNX: no oral lesions noted, posterior pharynx clear NECK: Supple, no adenopathy LUNGS: Normal breath sounds. No adventitious sounds or accessory muscle use. SpO2<97> CARDIOVASCULAR: Regular rate and rhythm without noted murmurs ABDOMEN: Soft, non-tender, non-distended with bowel sounds. PELVIS: Stable, tenderness noted over left hip with fullness in the proximal medial aspect of thigh MUSCULOSKELETAL: No tenderness, deformities, or effusions noted on gross inspection. EXTREMITIES: No cyanosis, clubbing or edema. LLE: Warm foot, no erythema or induration, no palpable cords, palpable pulses and capillary refill less than 2 seconds. SKIN: Inspection of the skin reveals no rashes or ecchymosis NEUROLOGIC: Alert, chronic contractions at baseline Medical Decision Making Medical Decision Making MDM Narrative: 73-year-old female with history and clinical presentation, DDX: [place] to be less likely DVT possible hip fracture, patient is noted to be grimacing, neurovascular is intact distal in the left lower extremity, not consistent with cellulitis. I was called over to the radiology suite to review x-ray of pelvis which demonstrates comminuted fracture of the left femur. At this time, I did notify case management/social services manager as there are no reported traumatic injuries but patient clearly has significant fracture, there was no noted ecchymosis, there is possibility of accidental manipulation of the left lower extremity. I reviewed all investigations and hematologic indices demonstrate a not infectious leukocytosis that is felt to be reactive in nature, there is a macrocytic anemia and noted elevated platelet count, patient is afebrile. Coagulation studies are within normal limits. Chemistry indices demonstrate a very mild low potassium level, magnesium level is within normal limits and otherwise no evidence of STEPHANIE. Urinalysis/Wolf catheter are pending. Venous duplex negative for evidence to suggest DVT, pelvic x-ray consistent with comminuted fracture of left femur, chest x-ray negative for infiltrate and otherwise my interpretation is in agreement with radiology's impressions on these imaging studies. 1018: I discussed the case with Dr. Nickerson, who is aware of admission. 1050: I attempted to notify emergency contact, Vikram Bolaños, but had to leave a voicemail and provided contact information in name for him to return the phone call. 1058: Brother called back, surprised about fracture, really endorsing support for the staff. He will be coming to see the patient. 1111: I discussed the case with inpatient hospitalist who accepts admission. Differential Diagnosis Differential Diagnoses: The differential diagnosis associated with the presentation includes Please see the discussion above Admission/Observation Consideration of admission/observation: Escalation of care including admission/observation considered Please see the discussion above Consult Healthcare Provider Management of the patient was discussed with: Hospitalist and Oil Burner Servicer And Installer Please see the discussion above Lab Data MDM Lab Attestation statement: I reviewed the patient's lab results. Please see the discussion above 06/26/23 09:13 06/26/23 09:13 Labs: Lab Results 06/26/23 06/26/23 Range/Units 09:13 10:09 WBC 14.4 H (4.8-10.8) X10*3/uL RBC 3.54 L (4.20-5.50) X10*6/uL Hgb 11.6 L (12.0-16.0) g/dl Hct 35.2 L (37.0-47.0) % MCV 99.4 H (80.0-98.0) fL MCH 32.8 (27.0-33.0) pg MCHC 33.0 (31.0-35.0) g/dl RDW 13.4 (11.0-16.0) % Plt Count 615 H D (160-400) X10*3/uL MPV 9.1 L (9.4-12.3) fL Immature Gran % (Auto) 0.3 (0.0-0.4) % Neut % (Auto) 85.7 H (45-73) % Lymph % (Auto) 5.7 L (20-40) % [place] % (Auto) 7.8 (2-11) % Eos % (Auto) 0.2 (0-4) % Baso % (Auto) 0.3 (0-2) % Lymph # (Auto) 0.8 L (1.2-4.9) X10*3/uL [place] # (Auto) 1.1 (0.1-1.2) X10*3/uL Eos # (Auto) 0.0 (0.0-0.4) X10*3/uL Baso # (Auto) 0.1 (0.0-0.2) X10*3/uL Abs Immat Gran (auto) 0.05 H (0.00-0.03) X10*3/uL Absolute Neuts (auto) 12.4 H (2.0-8.3) x10*3/uL Absolute Nucleated RBC 0.000 (0.0-0.012) X10*3/uL Nucleated RBC % (auto) 0.0 (0.0-0.2) /100WBC PT 11.0 L (11.1-13.3) SEC INR 0.9 (0.9-1.1) APTT 27.0 (26.0-36.4) SEC Sodium 143 (135-145) mmol/L Potassium 3.2 L (3.3-5.1) mmol/L Chloride 108 (96-108) mmol/L Carbon Dioxide 23 (22-29) mmol/L Anion Gap 15 (12-20) BUN 17 H (9-16) mg/dL Creatinine 0.66 (0.5-1.4) mg/dL Estim Creat Clear Calc 42.5 Estimated GFR > 60 Random Glucose 118 H (60-115) mg/dL Calcium 9.0 (8.4-10.2) mg/dL Magnesium 2.2 (1.6-2.6) mg/dL Blood Type AB Positive Antibody Screen NEGATIVE Radiology Impression Discussion of test interpretation with radiology: I have reviewed the radiologist's reading. Radiologist Impression: Please see the discussion above External Record Review External record reviewed: Outpatient record, Prior outpatient labs and Prior outpatient radiology Chronic Conditions Patient?s care impacted by: Other Cerebral palsy Critical Care Time Critical Care Time Critical Care Time: Yes Total Critical Care Time: 45 Attestation: I personally attest to this time spent taking care of the patient. Discharge Plan Discharge Clinical Impression: Cerebral palsy, Closed intertrochanteric fracture of left femur Patient Disposition: Admitted As Inpatient Prescriptions: No Action acetaminophen 325 mg Tablet 650 mg PO Q6H PRN (Reason: Fever Or Pain) dantrolene 25 mg capsule 25 mg PO BEDTIME magnesium oxide 400 mg (241.3 mg magnesium) tablet 1 tab PO DAILY omeprazole 20 mg capsule,delayed release(DR/EC) 1 cap PO DAILY calcium carbonate-vitamin D3 [Oyster Shell Calcium-Vit D3] 500 mg-5 mcg (200 unit) tablet 1 tab PO BID Reguloid (psyllium husk) 3 gram/5.4 gram powder 1 tsp PO DAILY cefuroxime axetil 250 mg tablet 250 mg PO BID 7 Days Qty: 14 0RF (DME) Xeroform Petrolatum Dressing 2 X 2 bandage See Rx Instructions .Route Qty: 20 0RF Rx Instructions: Apply to affected area once daily
[2023-06-26 11:10] LABS: Magnesium 2.2 mg/dL (1.6-2.6)
--- NOTE | 2023-06-26 11:31 | PM.IMHP ---
History of Present Illness Date of Service: 06/26/23 Attending physician on admission: Adelfo Darnell Chief Complaint: Left thigh swelling Pt is a 73-year-old female with a PMH significant for?cerebral palsy, spina bifida, nonverbal at baseline, and chronically wheelchair-bound who presents to the ED from [facility]?for evaluation of left thigh swelling. Pt is a resident of [facility] and also attends a day program. Pt nonverbal at baseline and unable to follow commands; she is thus incapable of providing HPI which is instead obtained from [facility] staff who is at bedside. Staff states patient was in her normal state of health last night, but staff noticed pt's left thigh was swollen and externally rotated when they woken her up this morning and began dressing her. Staff deny any trauma to the area or recent falls. Pt is transferred with a Amcie lift, and staff deny any accidents during recent transfers. Staff also deny pt exhibiting any other symptoms or recent illnesses. No fever, vomiting, diarrhea. Denies cough. In the ED pt was hypertensive up to 158/93, otherwise vitals WNL. Labs were significant for leukocytosis of 14.4, H&H 11.6/35.2, platelets 615, potassium 3.2. X-ray of pelvis found comminuted intertrochanteric fracture of the left femoral head with mild impaction. CXR showed no acute pulmonary pathology. Venous duplex of left lower extremity found no DVT. Pt was treated with ketorolac. Pt will be admitted to the hospital for treatment of left hip fracture with likely surgical intervention. Review of Systems Review of Systems: Unable to obtain due to patient's mentation [facility] Medical History (Updated 06/26/23 @ 13:54 by LAURA Taylor) Spina bifida Cerebral palsy Social History Advance Directives: No Advance Directives Information Provided: Yes Meds Allergies Allergy/AdvReac Type Severity Reaction Status Date / Time No Known Allergies Allergy Verified 06/06/23 14:59 Home Medications Medication Instructions Recorded Confirmed Last Taken Type calcium carbonate 500 mg-vitamin 1 tab PO BID 03/26/22 06/26/23 06/26/23 History D3 5 mcg (200 unit) tablet (Oyster Shell Calcium-Vitamin D3) dantrolene 25 mg capsule 25 mg PO BEDTIME 03/26/22 06/26/23 06/25/23 History magnesium oxide 400 mg (241.3 mg 1 tab PO DAILY 03/26/22 06/26/23 06/25/23 History magnesium) tablet omeprazole 20 mg capsule,delayed 1 cap PO DAILY@0630 03/26/22 06/26/23 06/26/23 History release gabapentin 100 mg capsule 100 mg PO TID 06/26/23 06/26/23 06/26/23 History naproxen 500 mg tablet 500 mg PO DAILY@1800 06/26/23 06/26/23 06/25/23 History polyethylene glycol 3350 17 17 g PO DAILY@0900 06/26/23 06/26/23 06/26/23 History gram/dose oral powder Physical Exam Vital Signs and Narrative: Vital Signs: Last Vital Signs Temp 99.2 F 06/26/23 09:01 Pulse 77 06/26/23 09:26 Resp 18 06/26/23 09:26 BP 158/93 H 06/26/23 09:26 Pulse Ox 97 06/26/23 09:01 O2 Del Method Room Air 06/26/23 09:01 BMI result Body Mass Index 14.8 Constitutional: Alert, frail-looking, cachetic, in no acute distress. Pt incapable of following commands Mental Status: Oriented to person, place and time. Eyes: Pupils are equal, round, and reactive to light. Ear, Nose, and Throat: Oropharynx clear, mucous membranes moist. Ears and nose without deformities. Trachea midline. Nonverbal at baseline. Poor dentition. Respiratory: Clear to auscultation bilaterally. No wheezing, rales, or rhonchi. Cardiovascular: S1, S2 regular. No murmurs, rubs, or gallops. Gastrointestinal: Abdomen soft, non-tender, non-distended. Normal bowel sounds. Neurologic: Pt unable to participate in exam. Hands and fingers chronically contracted. Skin: Warm, dry. Extremities: Upper left thigh swollen with left leg externally rotated. Psychiatric: Normal mood and affect. Results Labs 06/26/23 09:13 06/26/23 09:13 Labs: Laboratory Results - last 24 hr 06/26/23 06/26/23 09:13 10:09 MCV 99.4 H MCH 32.8 MCHC 33.0 RDW 13.4 Plt Count 615 H D MPV 9.1 L Immature Gran % (Auto) 0.3 Neut % (Auto) 85.7 H Lymph % (Auto) 5.7 L Blount % (Auto) 7.8 Eos % (Auto) 0.2 Baso % (Auto) 0.3 Lymph # (Auto) 0.8 L Blount # (Auto) 1.1 Eos # (Auto) 0.0 Baso # (Auto) 0.1 Abs Immat Gran (auto) 0.05 H Absolute Neuts (auto) 12.4 H Absolute Nucleated RBC 0.000 Nucleated RBC % (auto) 0.0 PT 11.0 L INR 0.9 APTT 27.0 Anion Gap 15 Estim Creat Clear Calc 42.5 Estimated GFR > 60 Random Glucose 118 H Calcium 9.0 Magnesium 2.2 Blood Type AB Positive Antibody Screen NEGATIVE Imaging Radiologist's Impressions: Impressions Chest X-Ray 06/26/23 09:57 IMPRESSION: 1. No acute pulmonary pathology. 2. Comminuted intertrochanteric fracture of the left femoral head with mild impaction. Pelvis X-Ray 06/26/23 09:57 IMPRESSION: 1. No acute pulmonary pathology. 2. Comminuted intertrochanteric fracture of the left femoral head with mild impaction. Venous Duplex 06/26/23 10:17 IMPRESSION: No DVT demonstrated in the left lower extremity. Assessment and Plan (1) Closed intertrochanteric fracture of left femur: Qualifiers: Encounter type: initial encounter Fracture alignment: displaced Qualified Code(s): S72.142A - Displaced intertrochanteric fracture of left femur, initial encounter for closed fracture Status: Acute Plan Pt is a 73-year-old female with a PMH significant for?cerebral palsy, spina bifida, nonverbal at baseline, and chronically wheelchair-bound who presents to the ED from [facility]?for evaluation of left thigh swelling. Pt will be admitted to the hospital for treatment of left hip fracture with likely surgical intervention. Left hip fracture X-ray of pelvis found a comminuted intertrochanteric fracture of the left femoral head with mild impaction Etiology unclear: Staff at [facility] deny any trauma to the area, recent fall, Macie lift malfunction; only noticed thigh swelling this morning Ortho consulted, plan on performing surgery tomorrow Analgesics for pain management Patient is at moderate to high risk for planned procedure d/t comorbidities and complete dependence for ADLs No known cardiac Check history, EKG without ischemic changes; RCRI 0 points; no further workup indicated at this time NPO after midnight Pneumatic boots for DVT prophylaxis PT consult Leukocytosis WBC 14.4 time of presentation Likely reactionary, no clear source of infection Patient has no other SIRS criteria: No tachypnea, tachycardia, or fever Hx of recurrent UTIs Will obtain UA Hx of cerebral palsy Continue dantrolene GERD Continue omeprazole DNR/DNI Attending:?Dr. Darnell DVT Prophylaxis: Pneumatic boots d/t impending surgical procedure Pt will require a hospitalization of at least two nights for treatment of?left hip fracture with surgical procedure. Quality Stroke Does the patient have a stroke diagnosis?: No VTE Prior VTE?: No VTE Risk Level:: Medical - moderate - high VTE Device Contraindication: N/A - Device Ordered VTE Drug Contraindication: Treatment Not Indicated
[2023-06-26] MEDS: Ketorolac Tromethamine 30 MG/ML VIAL 15 MG IVPUSH (12:02)
[2023-06-26 12:12] VITALS: BP 143/83; PULSE 87; RESP 16; O2SAT 96
--- NOTE | 2023-06-26 12:51 | MHC.CM.ED ---
Received case management consult from Dr Box. Patient came to the ER with nursing home staff due to left thigh swelling. Patient is bedbound at baseline. correction uses a Macie lift for transfers. Patient found to have left commuinuted intertrochanter of the left head with mild impaction. Patient will be admitted to the hospital. Orthopedics will be consulted. Met with patient and patient's support team assoc, Gaviota Arana. Patient lives in a [facility] nursing home. Patient's brother, Vikram, is patient's guardian. Gaviota will ask the nursing home to provide a copy of guardianship to CM. Dr Box is very concerned that patient sustained a femur fracture without any documented trauma. Haven Antonio CM director made aware. Haven reached out to Risk Management. [place] [employer] Incident Report completed at Risk Management's Request. Continue to monitor for d/c needs.
--- NOTE | 2023-06-26 12:55 | PHA.MEDREC ---
Pharmacy Consult ? Medication Reconciliation Pharmacy has completed the medication reconciliation. Spoke to Gaviota (rehabilitation program coordinator at patient's longterm) and verified medications from list.
--- NOTE | 2023-06-26 13:06 | PC.NURSE ---
patient had marques cath palced in ED, 16 fr with 10cc balloon, patient tolerated well, output of 200cc of urine
--- NOTE | 2023-06-26 13:34 | P.CONOP_ITS ---
History of Present Illness HPI Consult date: 06/26/23 Chief complaint: Left hip fracture Narrative: Pt is a 73-year-old female with a PMH significant for?cerebral palsy, spina bifida, nonverbal at baseline, and chronically wheelchair-bound who presents to the ED from intermediate?for evaluation of left thigh swelling. Pt is a resident of [facility] and also attends a day program. Although she is nonverbal at baseline, she was able to follow some of the directions given. One of the facilities aids that is familiar with the patient is at bedside and assisting with information. She reports that there was no known injury to the patient but this morning while washing/changing the patient she noticed that her left leg was very rotated. She states that the patient did not alert to any pain however, but, given the drastic change they felt she should be seen in the emergency department for x-ray and evaluation. X-rays obtained in the ED revealed a left intertrochanteric hip fracture. Orthopedics was consulted for further evaluation and treatment. Review of Systems 2 Review of Systems: Yes all other systems are reviewed and are negative [facility] Past Medical History Medical History Spina bifida Cerebral palsy Social History Social History Currently Displaying Signs/Symptoms of Drug Intoxication Withdrawal: No Advance Directives: No Advance Directives Information Provided: Yes Meds Allergies Allergy/AdvReac Type Severity Reaction Status Date / Time No Known Allergies Allergy Verified 06/06/23 14:59 Active Medications: Current Medications Acetaminophen (Acetaminophen 325 Mg Tablet) 650 mg PO Q6H PRN PRN Reason: Pain, Mild (Pain Scale 1-3) Dantrolene Sodium (Dantrolene Sodium 25 Mg Capsule) 25 mg PO BEDTIME [facility] Gabapentin (Gabapentin 100 Mg Capsule) 100 mg PO TID [facility] Magnesium Oxide (Magnesium Oxide 400 Mg Tablet) 400 mg PO DAILY [facility] Melatonin (Melatonin 3 Mg Tablet) 6 mg PO BEDTIME PRN PRN Reason: Insomnia Morphine Sulfate (Morphine Sulfate 2 Mg/Ml Cartridge) 2 mg IM Q4H PRN; Protocol PRN Reason: Pain, Severe (Pain Scale 7-10) Naproxen (Naproxen 500 Mg Tablet) 500 mg PO DAILY@1800 [facility] Non-Formulary Medication (Calcium Carbonate-Vitamin D3 [Oyster Shell Calcium-Vit D3]) 1 tab PO BID [facility] Omeprazole (Omeprazole 20 Mg Capsule.) 20 mg PO DAILY@0630 [facility] Ondansetron HCl (Ondansetron Hcl 4 Mg/2 Ml Vial) 4 mg IVPUSH Q8H PRN PRN Reason: Nausea and Vomiting Polyethylene Glycol (Polyethylene Glycol 3350 17 Gm Powd.Pack) 17 gm PO DAILY@0900 [facility] Sodium Chloride (0.9 % Sodium Chloride Flush 3 Ml Syringe) 3 ml IVFLUSH QSHIFT [facility] Home Medications Medication Instructions Recorded Confirmed Last Taken Type calcium carbonate 500 mg-vitamin 1 tab PO BID 03/26/22 06/26/23 06/26/23 History D3 5 mcg (200 unit) tablet (Oyster Shell Calcium-Vitamin D3) dantrolene 25 mg capsule 25 mg PO BEDTIME 03/26/22 06/26/23 06/25/23 History magnesium oxide 400 mg (241.3 mg 1 tab PO DAILY 03/26/22 06/26/23 06/25/23 History magnesium) tablet omeprazole 20 mg capsule,delayed 1 cap PO DAILY@0630 03/26/22 06/26/23 06/26/23 History release gabapentin 100 mg capsule 100 mg PO TID 06/26/23 06/26/23 06/26/23 History naproxen 500 mg tablet 500 mg PO DAILY@1800 06/26/23 06/26/23 06/25/23 History polyethylene glycol 3350 17 17 g PO DAILY@0900 06/26/23 06/26/23 06/26/23 History gram/dose oral powder Physical Exam 2 Vital Signs: Vital Signs: Last Vital Signs Temp 99.2 F 06/26/23 09:01 Pulse 87 06/26/23 12:12 Resp 16 06/26/23 12:12 BP 143/83 H 06/26/23 12:12 Pulse Ox 96 06/26/23 12:12 O2 Del Method Room Air 06/26/23 12:12 BMI result Body Mass Index 14.8 Const: General: cooperative, healthy appearing and no acute distress Resp: Effort & Inspection: normal respiratory effort and able to speak in complete sentences Cardio: Rate: regular rate Peripheral pulses: Peripheral pulses 2+ throughout GI: Palpation (GI): Soft to palpation Skin: Lesions: no lesions Rashes: no rashes Extrem: Other: Left lower extremity is held in flexion and extremely externally rotated. She was able to dorsiand plantarflex when added. Does not alert to pain with attempted log roll. Results Labs 06/27/23 06:14 06/27/23 06:14 Labs: Abnormal lab results 06/26/23 06/26/23 Range/Units 09:13 10:09 WBC 14.4 H (4.8-10.8) X10*3/uL RBC 3.54 L (4.20-5.50) X10*6/uL Hgb 11.6 L (12.0-16.0) g/dl Hct 35.2 L (37.0-47.0) % MCV 99.4 H (80.0-98.0) fL Plt Count 615 H D (160-400) X10*3/uL MPV 9.1 L (9.4-12.3) fL Neut % (Auto) 85.7 H (45-73) % Lymph % (Auto) 5.7 L (20-40) % Lymph # (Auto) 0.8 L (1.2-4.9) X10*3/uL Abs Immat Gran (auto) 0.05 H (0.00-0.03) X10*3/uL Absolute Neuts (auto) 12.4 H (2.0-8.3) x10*3/uL PT 11.0 L (11.1-13.3) SEC Potassium 3.2 L (3.3-5.1) mmol/L BUN 17 H (9-16) mg/dL Random Glucose 118 H (60-115) mg/dL H & H 06/26/23 Range/Units 09:13 Hgb 11.6 L (12.0-16.0) g/dl Hct 35.2 L (37.0-47.0) % Coagulation 06/26/23 Range/Units 10:09 INR 0.9 (0.9-1.1) All other labs normal. Assessment and Plan (1) Closed intertrochanteric fracture of left femur: Qualifiers: Encounter type: initial encounter Fracture alignment: displaced Qualified Code(s): S72.142A - Displaced intertrochanteric fracture of left femur, initial encounter for closed fracture Status: Acute I discussed the case with Dr. Nickerson and a collaborative treatment plan was created Since patient is strictly WC bound requiring angelica lifts for transfer the decision was made to manage non-operatively NWB LLE Pain management as appropriate Dr. Nickerson to speak with family to discuss - Vikram (son) [phone] Nurse at Facility: [facility] [phone] Procedures Date of Service Date of Service: 06/27/23
[2023-06-26 14:21] VITALS: BP 130/77; PULSE 90; RESP 16; TEMP 37.1; O2SAT 97
[2023-06-26] MEDS: Gabapentin 100 MG CAPSULE PO ×2 (14:56→20:57)
[2023-06-26] MEDS: Magnesium Oxide 400 MG TABLET PO (14:56)
[2023-06-26] MEDS: Omeprazole 20 MG CAPSULE.DR PO (14:56)
--- NOTE | 2023-06-26 14:59 | PC.NURSE ---
patient positioned upright in stretcher, long-term at bedside. patient takes meds crushed with apple sauce or pudding
[2023-06-26 15:31] LABS: Appearance Urine Turbid; Color Urine Yellow; Glucose Urine UA Negative (Negative); Leukocyte Esterase Urine Large (3+) (Negative); Nitrite Urine Negative (Negative); UMIC TRIGGER UACC YES; Urine Blood Large (3+) (Negative); Urine Ketones Negative (Negative); Urine Protein 100 (2+) mg/dL (Neg-Trace)
[2023-06-26 15:42] LABS: Bacteria Urine 4+ (None Seen); Hyaline Casts Urine >20 /LPF (0-2); Other Crystals Urine Present; RBC Urine >20 /HPF (0-2); UACC Culture Trigger YES; WBC Urine >50 /HPF (0-5)
[2023-06-26] MEDS: NaPROXEN 500 MG TABLET PO (17:35)
[2023-06-26] MEDS: 0.9 % Sodium Chloride Flush 3 ML SYRINGE IVFLUSH ×2 (17:36→20:57)
--- NOTE | 2023-06-26 19:23 | PC.NURSE ---
assumed care of pt at this time. senior living staff at bedside. nad. pt appears comfortable. senior living staff states pt will make it known when in pain. pt ate 90% of dinner.
[2023-06-26 20:42] VITALS: BP 160/116; PULSE 99; RESP 19; TEMP 37.3; O2SAT 96
[2023-06-26 20:43] VITALS: BMI 14.7
[2023-06-26] MEDS: Acetaminophen 325 MG TABLET 650 MG PO (20:56)
[2023-06-26] MEDS: Calcium + Vitamin D 250 MG TABLET PO (20:57)
[2023-06-27 03:50] VITALS: BP 145/87; PULSE 83; RESP 18; TEMP 37.1; O2SAT 94
[2023-06-27 05:50] VITALS: BP 154/83; PULSE 84
[2023-06-27] MEDS: Morphine Sulfate 2 MG/ML CARTRIDGE IM (05:53)
[2023-06-27 06:51] LABS: Hematocrit 34.1 % (37.0-47.0); Hemoglobin 11.2 g/dl (12.0-16.0); Mean Corpuscular HGB Conc 32.8 g/dl (31.0-35.0); Mean Corpuscular Hemoglobin 32.6 pg (27.0-33.0); Mean Corpuscular Volume 99.1 fL (80.0-98.0); Mean Platelet Volume 9.7 fL (9.4-12.3); Platelet Count 592 X10*3/uL (160-400); Red Blood Count 3.44 X10*6/uL (4.20-5.50); Red Cell Distribution Width 13.4 % (11.0-16.0)
[2023-06-27 07:15] LABS: Anion Gap 13 (12-20); Blood Urea Nitrogen 24 mg/dL (9-16); Calcium 9.1 mg/dL (8.4-10.2); Carbon Dioxide 26 mmol/L (22-29); Chloride 109 mmol/L (96-108); Creatinine Clr Calc Pharmacy 35.7; Estimated Glomerular Filt Rate > 60; Glucose Random 97 mg/dL (60-115); Potassium 3.3 mmol/L (3.3-5.1); Sodium 145 mmol/L (135-145)
[2023-06-27 07:29] VITALS: BP 138/89; PULSE 88; RESP 18; TEMP 36.6; O2SAT 94
[2023-06-27] MEDS: Magnesium Oxide 400 MG TABLET PO (08:30)
[2023-06-27] MEDS: Gabapentin 100 MG CAPSULE PO ×3 (08:30→20:04)
[2023-06-27] MEDS: cefTRIAXone sodium 1 GM in 0.9 % Sodium Chloride 50 ML IV (08:31)
[2023-06-27] MEDS: Calcium + Vitamin D 250 MG TABLET PO ×2 (08:31→20:04)
[2023-06-27] MEDS: Acetaminophen 325 MG TABLET 650 MG PO ×3 (09:59→20:04)
[2023-06-27 11:04] VITALS: RESP 16
[2023-06-27 11:30] VITALS: BMI 16.3
[2023-06-27 11:32] VITALS: BMI 16.3
--- NOTE | 2023-06-27 11:37 | MHC.CLN ---
PT IS MODERATELY MALNOURISHED PT WITH MILDLY DEPLETED SUBCUTANEOUS FAT AND MUSCLE MASS WITH BMI 16 PT LIVES AT [facility]. [facility] STAFF REPORTED PT WT UP FROM 63#, WT OVERALL STABLE APPETITE IS GOOD PT IS CURRENTLY NPO WHEN TO ADVANCE; RECOMMEND ADDING MAGIC CUP TID TO INCREASE KCALS MONITOR FOR DIET ADVANCEMENT SEE ALSO FULL CLINICAL NUTRITION ASSESSMENT
--- NOTE | 2023-06-27 12:39 | HO.PM.IMPN ---
Subjective Subjective Date of Service: 06/27/23 Interval History: Seen and evaluated this morning lying smiling in her bed non-verbal reported discomfort with changing position and movement Review of Systems Review of Systems: Yes Unobtainable due to mental status Physical Exam Vital Signs: Vital Signs: Last Vital Signs Temp 98 F 06/27/23 07:29 Pulse 88 06/27/23 07:29 Resp 16 06/27/23 11:04 BP 138/89 06/27/23 07:29 Pulse Ox 94 06/27/23 07:29 O2 Del Method Room Air 06/27/23 07:29 BMI result Body Mass Index 16.3 Const: Other: Constitutional : Awake, underwieght, not in distress Neck : Normal inspection, Supple Cardiovascular : RRR, no JVP, no lower extremity edema Respiratory : good bilateral air entry, no crackles Gastrointestinal: soft, lax, Non tender Skin : Warm, Dry Skeletal; LLE externally rotated and shorted Neurological : Alert & non verbal, moving all extremities Objective Data Active Medications Acetaminophen (Acetaminophen 325 Mg Tablet) 650 mg PO Q6H PRN PRN Reason: Pain, Mild (Pain Scale 1-3) Last Admin: 06/27/23 09:59 Dose: 650 mg Documented By: EVERETT Calcium Carbonate/Cholecalciferol (Calcium + Vitamin D 250 Mg Tablet) 250 mg PO BID [facility] Last Admin: 06/27/23 08:31 Dose: 250 mg Documented By: EVERETT Dantrolene Sodium (Dantrolene Sodium 25 Mg Capsule) 25 mg PO BEDTIME [facility] Last Admin: 06/26/23 20:57 Dose: Not Given Documented By: EILEEN Non-Admin Reason: Med Not Available Gabapentin (Gabapentin 100 Mg Capsule) 100 mg PO TID [facility] Last Admin: 06/27/23 08:30 Dose: 100 mg Documented By: EVERETT Ceftriaxone Sodium 1 gm/ (Sodium Chloride) 50 mls @ 100 mls/hr IV Q24H [facility] Last Infusion: 06/27/23 09:02 Dose: Infused Documented By: EVERETT Magnesium Oxide (Magnesium Oxide 400 Mg Tablet) 400 mg PO DAILY [facility] Last Admin: 06/27/23 08:30 Dose: 400 mg Documented By: EVERETT Melatonin (Melatonin 3 Mg Tablet) 6 mg PO BEDTIME PRN PRN Reason: Insomnia Morphine Sulfate (Morphine Sulfate 2 Mg/Ml Cartridge) 2 mg IM Q4H PRN; Protocol PRN Reason: Pain, Severe (Pain Scale 7-10) Last Admin: 06/27/23 05:53 Dose: 2 mg Documented By: EILEEN Naproxen (Naproxen 500 Mg Tablet) 500 mg PO DAILY@1800 [facility] Last Admin: 06/26/23 17:35 Dose: 500 mg Documented By: RADHA Omeprazole (Omeprazole 20 Mg Capsule.Dr) 20 mg PO DAILY@0630 [facility] Last Admin: 06/27/23 05:09 Dose: Not Given Documented By: EILEEN Non-Admin Reason: NPO Ondansetron HCl (Ondansetron Hcl 4 Mg/2 Ml Vial) 4 mg IVPUSH Q8H PRN PRN Reason: Nausea and Vomiting Polyethylene Glycol (Polyethylene Glycol 3350 17 Gm Powd.Pack) 17 gm PO DAILY@0900 [facility] Last Admin: 06/27/23 08:34 Dose: Not Given Documented By: EVERETT Non-Admin Reason: Patient Refused Sodium Chloride (0.9 % Sodium Chloride Flush 3 Ml Syringe) 3 ml IVFLUSH QSHIFT [facility] Last Admin: 06/27/23 10:17 Dose: Not Given Documented By: EVERETT Non-Admin Reason: Previously Administered Labs 06/27/23 06:14 06/27/23 06:14 Labs: Laboratory Results - last 24 hr 06/26/23 06/27/23 15:10 06:14 MCV 99.1 H MCH 32.6 MCHC 32.8 RDW 13.4 Plt Count 592 H MPV 9.7 Absolute Nucleated RBC 0.000 Nucleated RBC % (auto) 0.0 Anion Gap 13 Estim Creat Clear Calc 35.7 Estimated GFR > 60 Random Glucose 97 Calcium 9.1 Urine Color Yellow Urine Appearance Turbid Urine pH 7.0 Ur Specific [place] 1.020 Urine Protein 100 (2+) H Urine Glucose (UA) Negative Urine Ketones Negative Urine Blood Large (3+) H Urine Nitrite Negative Ur Leukocyte Esterase Large (3+) H Urine RBC >20 H Urine WBC >50 H Ur Squamous Epith Cells 6-10 Other Crystals Present Urine Bacteria 4+ Hyaline Casts >20 Microbiology Microbiology Results: Microbiology 12/14/23 Unknown Urine Culture - Preliminary Urine clean catch - Urine barnes top No growth to date. Assessment and Plan (1) Urinary tract infection: Status: Inactive (2) Closed intertrochanteric fracture of left femur: Status: Acute Plan Pt is a 73-year-old female with a PMH significant for?cerebral palsy, spina bifida, nonverbal at baseline, and chronically wheelchair-bound who presents to the ED from long term?for evaluation of left thigh swelling. Pt will be admitted to the hospital for treatment of left hip fracture with likely surgical intervention. Left hip fracture X-ray of pelvis found a comminuted intertrochanteric fracture of the left femoral head with mild impaction Etiology unclear Ortho consulted, no plans for surgery given her wheelchair-bount status Tylenol for pain management start diet Pneumatic boots for DVT prophylaxis PT consult Leukocytosis 2/2 UTI WBC went down to 12k pending cultures Ceftriaxone Hx of cerebral palsy Continue dantrolene GERD Continue omeprazole DNR/DNI DVT Prophylaxis: Pneumatic boots d/t impending surgical procedure Pt will require a hospitalization of at least two nights for treatment of?left hip fracture with surgical procedure. Quality Stroke Does the patient have a stroke diagnosis?: No VTE Prior VTE?: No VTE Risk Level:: Medical - moderate - high VTE Device Contraindication: N/A - Device Ordered VTE Drug Contraindication: Treatment Not Indicated
[2023-06-27 15:57] VITALS: BP 160/86; PULSE 89; RESP 18; TEMP 36.6; O2SAT 97
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
[2023-06-27] MEDS: 0.9 % Sodium Chloride Flush 3 ML SYRINGE IVFLUSH ×2 (16:11→20:04)
[2023-06-27] MEDS: NaPROXEN 500 MG TABLET PO (17:38)
[2023-06-27 20:00] VITALS: BP 160/100; PULSE 90; RESP 18; TEMP 36.3; O2SAT 97
[2023-06-28 03:21] VITALS: BP 137/85; PULSE 90; RESP 18; TEMP 36.2; O2SAT 98
[2023-06-28] MEDS: Omeprazole 20 MG CAPSULE.DR PO (05:26)
[2023-06-28 06:48] LABS: Anion Gap 14 (12-20); Blood Urea Nitrogen 34 mg/dL (9-16); Calcium 8.8 mg/dL (8.4-10.2); Carbon Dioxide 25 mmol/L (22-29); Chloride 114 mmol/L (96-108); Creatinine Clr Calc Pharmacy 35.2; Estimated Glomerular Filt Rate > 60; Glucose Random 106 mg/dL (60-115); Potassium 3.6 mmol/L (3.3-5.1); Sodium 149 mmol/L (135-145)
[2023-06-28 06:49] LABS: Hematocrit 33.1 % (37.0-47.0); Hemoglobin 10.8 g/dl (12.0-16.0); Hemoglobin 10.9 g/dl (12.0-16.0); Mean Corpuscular HGB Conc 32.6 g/dl (31.0-35.0); Mean Corpuscular HGB Conc 32.9 g/dl (31.0-35.0); Mean Corpuscular Hemoglobin 32.8 pg (27.0-33.0); Mean Corpuscular Hemoglobin 32.9 pg (27.0-33.0); Mean Corpuscular Volume 100.9 fL (80.0-98.0); Mean Corpuscular Volume 99.7 fL (80.0-98.0); Mean Platelet Volume 9.8 fL (9.4-12.3); Platelet Count 534 X10*3/uL (160-400); Platelet Count 547 X10*3/uL (160-400); Red Blood Count 3.28 X10*6/uL (4.20-5.50); Red Blood Count 3.32 X10*6/uL (4.20-5.50); Red Cell Distribution Width 13.4 % (11.0-16.0); Red Cell Distribution Width 13.5 % (11.0-16.0); White Blood Count 11.6 X10*3/uL (4.8-10.8)
[2023-06-28 06:51] LABS: Anion Gap 16 (12-20); Blood Urea Nitrogen 35 mg/dL (9-16); Calcium 8.9 mg/dL (8.4-10.2); Carbon Dioxide 24 mmol/L (22-29); Chloride 114 mmol/L (96-108); Creatinine Clr Calc Pharmacy 35.7; Estimated Glomerular Filt Rate > 60; Glucose Random 106 mg/dL (60-115); Potassium 3.6 mmol/L (3.3-5.1); Sodium 150 mmol/L (135-145)
[2023-06-28 07:45] VITALS: BP 169/90; PULSE 79; RESP 20; TEMP 37.1; O2SAT 96
--- NOTE | 2023-06-28 10:42 | P.PNIM_ITS ---
Subjective Subjective Date of Service: 06/28/23 Interval History: Seen and evaluated this morning lying smiling in her bed non-verbal looks comfortable Review of Systems Review of Systems: Yes Unobtainable due to mental condition Physical Exam 2 Vital Signs: Vital Signs: Last Vital Signs Temp 98.7 F 06/28/23 07:45 Pulse 79 06/28/23 07:45 Resp 20 06/28/23 07:45 BP 169/90 H 06/28/23 07:45 Pulse Ox 96 06/28/23 07:45 O2 Del Method Room Air 06/28/23 07:45 BMI result Body Mass Index 16.3 Const: Other: Constitutional : Awake, underwieght, not in distress Neck : Normal inspection, Supple Cardiovascular : RRR, no JVP, no lower extremity edema Respiratory : good bilateral air entry, no crackles Gastrointestinal: soft, lax, Non tender Skin : Warm, Dry Skeletal; LLE externally rotated and shorted Neurological : Alert & non verbal, moving all extremities Objective Data Active Medications Acetaminophen (Acetaminophen 325 Mg Tablet) 650 mg PO TID [facility] Last Admin: 06/27/23 20:04 Dose: 650 mg Documented By: IVANNA Calcium Carbonate/Cholecalciferol (Calcium + Vitamin D 250 Mg Tablet) 250 mg PO BID [facility] Last Admin: 06/27/23 20:04 Dose: 250 mg Documented By: IVANNA Dantrolene Sodium (Dantrolene Sodium 25 Mg Capsule) 25 mg PO BEDTIME [facility] Last Admin: 06/27/23 20:04 Dose: 25 mg Documented By: IVANNA Gabapentin (Gabapentin 100 Mg Capsule) 100 mg PO TID [facility] Last Admin: 06/27/23 20:04 Dose: 100 mg Documented By: IVANNA Ceftriaxone Sodium 1 gm/ (Sodium Chloride) 50 mls @ 100 mls/hr IV Q24H [facility] Last Infusion: 06/27/23 09:02 Dose: Infused Documented By: EVERETT Dextrose (D5w) 1,000 mls @ 125 mls/hr IVCONT .Q8H [facility] Magnesium Oxide (Magnesium Oxide 400 Mg Tablet) 400 mg PO DAILY [facility] Last Admin: 06/27/23 08:30 Dose: 400 mg Documented By: EVERETT Melatonin (Melatonin 3 Mg Tablet) 6 mg PO BEDTIME PRN PRN Reason: Insomnia Morphine Sulfate (Morphine Sulfate 2 Mg/Ml Cartridge) 2 mg IM Q4H PRN; Protocol PRN Reason: Pain, Severe (Pain Scale 7-10) Last Admin: 06/27/23 05:53 Dose: 2 mg Documented By: EILEEN Naproxen (Naproxen 500 Mg Tablet) 500 mg PO DAILY@1800 [facility] Last Admin: 06/27/23 17:38 Dose: 500 mg Documented By: EVERETT Omeprazole (Omeprazole 20 Mg Capsule.Dr) 20 mg PO DAILY@0630 [facility] Last Admin: 06/28/23 05:26 Dose: 20 mg Documented By: IVANNA Ondansetron HCl (Ondansetron Hcl 4 Mg/2 Ml Vial) 4 mg IVPUSH Q8H PRN PRN Reason: Nausea and Vomiting Polyethylene Glycol (Polyethylene Glycol 3350 17 Gm Powd.Pack) 17 gm PO DAILY@0900 [facility] Last Admin: 06/27/23 08:34 Dose: Not Given Documented By: EVERETT Non-Admin Reason: Patient Refused Sodium Chloride (0.9 % Sodium Chloride Flush 3 Ml Syringe) 3 ml IVFLUSH QSHIFT [facility] Last Admin: 06/27/23 20:04 Dose: 3 ml Documented By: IVANNA Labs 06/28/23 06:08 06/28/23 06:08 Labs: Laboratory Results - last 24 hr 06/28/23 06/28/23 06/28/23 06:08 06:08 06:08 MCV 100.9 H 99.7 H MCH 32.9 32.8 MCHC 32.6 RDW Plt Count MPV Absolute Nucleated RBC Nucleated RBC % (auto) Anion Gap Estim Creat Clear Calc Estimated GFR Random Glucose Calcium 06/28/23 06/28/23 06/28/23 06:08 06:08 06:08 MCV MCH MCHC 32.9 RDW 13.4 13.5 Plt Count 547 H 534 H MPV 9.8 Absolute Nucleated RBC Nucleated RBC % (auto) Anion Gap Estim Creat Clear Calc Estimated GFR Random Glucose Calcium 06/28/23 06/28/23 06/28/23 06:08 06:08 06:08 MCV MCH MCHC RDW Plt Count MPV 9.8 Absolute Nucleated RBC 0.000 0.000 Nucleated RBC % (auto) 0.0 0.0 Anion Gap 14 Estim Creat Clear Calc Estimated GFR Random Glucose Calcium 06/28/23 06/28/23 06/28/23 06:08 06:08 06:08 MCV MCH MCHC RDW Plt Count MPV Absolute Nucleated RBC Nucleated RBC % (auto) Anion Gap 16 Estim Creat Clear Calc 35.2 35.7 Estimated GFR > 60 > 60 Random Glucose 106 Calcium 06/28/23 06/28/23 06:08 06:08 MCV MCH MCHC RDW Plt Count MPV Absolute Nucleated RBC Nucleated RBC % (auto) Anion Gap Estim Creat Clear Calc Estimated GFR Random Glucose 106 Calcium 8.8 8.9 Microbiology Microbiology Results: Microbiology 06/26/23 Unknown Urine Culture - Preliminary Urine clean catch - Urine barnes top No growth to date. Assessment and Plan (1) Closed intertrochanteric fracture of left femur: Status: Acute (2) Urinary tract infection: Status: Acute (3) Leukocytosis: Status: Acute Plan Pt is a 73-year-old female with a PMH significant for?cerebral palsy, spina bifida, nonverbal at baseline, and chronically wheelchair-bound who presents [facility] the ED from [facility]?for evaluation of left thigh swelling. Pt will be admitted to the hospital for treatment of left hip fracture with likely surgical intervention. Left hip fracture X-ray of pelvis found a comminuted intertrochanteric fracture of the left femoral head with mild impaction Etiology unclear Ortho consulted, no plans for surgery given her wheelchair-bount status Tylenol for pain management start diet Pneumatic boots for DVT prophylaxis PT consult Leukocytosis 2/2 UTI WBC trending down pending cultures continue Ceftriaxone Hx of cerebral palsy Continue dantrolene GERD Continue omeprazole DNR/DNI DVT Prophylaxis: Pneumatic boots d/t impending surgical procedure Pt will require a hospitalization overnight for treatment of?left hip fracture and pain management as [facility] will not take her back over the weekend pending safe discharge plan Quality Stroke Does the patient have a stroke diagnosis?: No VTE Prior VTE?: No VTE Risk Level:: Medical - moderate - high VTE Device Contraindication: N/A - Device Ordered VTE Drug Contraindication: Treatment Not Indicated
[2023-06-28] MEDS: Gabapentin 100 MG CAPSULE PO ×3 (11:01→22:09)
[2023-06-28] MEDS: Acetaminophen 325 MG TABLET 650 MG PO ×3 (11:02→22:08)
[2023-06-28] MEDS: Calcium + Vitamin D 250 MG TABLET PO ×2 (11:02→22:09)
[2023-06-28] MEDS: polyethylene glycoL 3350 17 GM POWD.PACK PO (11:02)
[2023-06-28] MEDS: Magnesium Oxide 400 MG TABLET PO (11:02)
[2023-06-28] MEDS: cefTRIAXone sodium 1 GM in 0.9 % Sodium Chloride 50 ML IV (11:03)
[2023-06-28] MEDS: 0.9 % Sodium Chloride Flush 3 ML SYRINGE IVFLUSH ×3 (11:03→22:09)
[2023-06-28] MEDS: Dextrose 5 % 1,000 ML 125 ML IVCONT ×2 (11:03→17:08)
[2023-06-28 11:59] VITALS: BP 139/85; PULSE 84; RESP 20; TEMP 36.9; O2SAT 96
[2023-06-28 15:08] LABS: Anion Gap 14 (12-20); Blood Urea Nitrogen 30 mg/dL (9-16); Calcium 8.4 mg/dL (8.4-10.2); Carbon Dioxide 24 mmol/L (22-29); Chloride 113 mmol/L (96-108); Creatinine Clr Calc Pharmacy 34.8; Estimated Glomerular Filt Rate > 60; Glucose Random 190 mg/dL (60-115); Potassium 3.5 mmol/L (3.3-5.1); Sodium 147 mmol/L (135-145)
[2023-06-28 16:00] VITALS: BP 131/94; PULSE 99; RESP 18; TEMP 37.7; O2SAT 96
[2023-06-28] MEDS: NaPROXEN 500 MG TABLET PO (17:07)
--- NOTE | 2023-06-28 18:35 | P.CDIM_ITS ---
PROVIDER RESPONSE TEXT: To clarify, the appropriate diagnosis supported by the clinical indicators: Underweight QUERY TEXT: PHYSICIAN'S DOCUMENTATION REQUEST Date of Query: 06/27/2023 01:08 PM EST Patient Name: Sheree Govea Admit Date: 06/26/2023 Dear Gerda Arrington, A review of the medical record indicates additional documentation may be needed. Please review below and update the documentation accordingly. Clinical Indicators: Height: ( ) 4'9 Weight: ( ) 34.2 kg BMI: ( ) 16.3 Other Clinical Notes Supporting Significance of the BMI: Per Clinical Nutrition Assessment 06/27/23: Underweight Body Fat mild orbital depletion Muscle Mass Mild depletion scientology Patient is moderately malnourished If possible, please provide an associated diagnosis related to the abnormal BMI, such as: Underweight Weight loss Cachexia Moderate Protein Calorie Malnutrition BMI is not significant Other (explain) Clinically unable to determine (explain) Thank you, Sheree Floyd RN Use of terms such as suspected, likely, concern for, or probable (associated with a specific diagnosi s that is being evaluated, monitored, or treated as if it exists) are acceptable and can be coded in the inpatient se tting, when documented at the time of discharge. Please use your independent medical judgment in providing your response. THIS QUERY IS PART OF THE PERMANENT MEDICAL RECORD
[2023-06-28 19:39] VITALS: BP 144/82; PULSE 93; RESP 18; TEMP 37.2; O2SAT 96
[2023-06-29] MEDS: Dextrose 5 % 1,000 ML 125 ML IVCONT (00:31)
[2023-06-29 03:16] VITALS: BP 175/88; PULSE 83; RESP 16; TEMP 36; O2SAT 97
[2023-06-29] MEDS: Omeprazole 20 MG CAPSULE.DR PO (05:18)
[2023-06-29 06:44] LABS: Anion Gap 12 (12-20); Blood Urea Nitrogen 21 mg/dL (9-16); Calcium 8.7 mg/dL (8.4-10.2); Carbon Dioxide 26 mmol/L (22-29); Chloride 106 mmol/L (96-108); Creatinine Clr Calc Pharmacy 41.6; Estimated Glomerular Filt Rate > 60; Glucose Random 106 mg/dL (60-115); Potassium 3.8 mmol/L (3.3-5.1); Sodium 140 mmol/L (135-145)
[2023-06-29 07:43] VITALS: BP 162/90; PULSE 87; RESP 20; TEMP 36.8; O2SAT 97
[2023-06-29] MEDS: Gabapentin 100 MG CAPSULE PO ×3 (09:03→20:07)
[2023-06-29] MEDS: Magnesium Oxide 400 MG TABLET PO (09:03)
[2023-06-29] MEDS: Calcium + Vitamin D 250 MG TABLET PO ×2 (09:03→20:07)
[2023-06-29] MEDS: Acetaminophen 325 MG TABLET 650 MG PO ×3 (09:03→20:07)
[2023-06-29] MEDS: 0.9 % Sodium Chloride Flush 3 ML SYRINGE IVFLUSH ×3 (09:04→20:07)
[2023-06-29] MEDS: polyethylene glycoL 3350 17 GM POWD.PACK PO (09:04)
[2023-06-29] MEDS: cefTRIAXone sodium 1 GM in 0.9 % Sodium Chloride 50 ML IV (09:04)
--- NOTE | 2023-06-29 09:34 | MHC.CM.PN ---
Addendum entered by Lynsey Ornelas RN 06/29/23 09:54: CM DISCUSSED HOSPICE W/HOSPITALIST WHO FEELS THAT SHOULD BE DONE OUTPT THROUGH PCP, PER HOSPITALIST PLAN TO SEND W/HOME W/[facility] AND PT CAN TRANSITION FROM THERE. Original Note: EMR REVIEWED, HOSPITALIST WOULD LIKE TO PLAN FOR DC TOMORROW, CM HAS EMAILED NURSE AG W/ANTIC PLAN FOR DC AND ORTHO AND PT NOTES, PER AG AND VICE PRESIDENT TALENT MANAGEMENT THEY WOULD LIKE PAIN MEDICATION/MANAGEMENT FOR PT SHE ALREADY HAD PAIN PRIOR TO COMING TO HOSPITAL AND THEY WANT TO MAKE SURE SHE WILL BE COMOFRTABLE AT HOME W/NEW UNOPERABLE HIP FX.
--- NOTE | 2023-06-29 10:39 | HO.PM.IMPN ---
Subjective Subjective Date of Service: 06/29/23 Interval History: Seen and evaluated this morning lying comfortable in her bed non-verbal no reported overnight events Review of Systems Review of Systems: Yes Unobtainable due to mental status Physical Exam Vital Signs: Vital Signs: Last Vital Signs Temp 98.3 F 06/29/23 07:43 Pulse 87 06/29/23 07:43 Resp 20 06/29/23 07:43 BP 162/90 H 06/29/23 07:43 Pulse Ox 97 06/29/23 07:43 O2 Del Method Room Air 06/29/23 07:43 BMI result Body Mass Index 16.3 Const: Other: Constitutional : Awake, underwieght, not in distress Neck : Normal inspection, Supple Cardiovascular : RRR, no JVP, no lower extremity edema Respiratory : good bilateral air entry, no crackles Gastrointestinal: soft, lax, Non tender Skin : Warm, Dry Skeletal; LLE externally rotated and shorted Neurological : Alert & non verbal, moving all extremities Objective Data Active Medications Acetaminophen (Acetaminophen 325 Mg Tablet) 650 mg PO TID [facility] Last Admin: 06/29/23 09:03 Dose: 650 mg Documented By: TERRY Calcium Carbonate/Cholecalciferol (Calcium + Vitamin D 250 Mg Tablet) 250 mg PO BID [facility] Last Admin: 06/29/23 09:03 Dose: 250 mg Documented By: TERRY Dantrolene Sodium (Dantrolene Sodium 25 Mg Capsule) 25 mg PO BEDTIME [facility] Last Admin: 06/28/23 22:08 Dose: 25 mg Documented By: [place] Gabapentin (Gabapentin 100 Mg Capsule) 100 mg PO TID [facility] Last Admin: 06/29/23 09:03 Dose: 100 mg Documented By: TERRY Ceftriaxone Sodium 1 gm/ (Sodium Chloride) 50 mls @ 100 mls/hr IV Q24H [facility] Last Infusion: 06/29/23 09:45 Dose: Infused Documented By: TERRY Magnesium Oxide (Magnesium Oxide 400 Mg Tablet) 400 mg PO DAILY [facility] Last Admin: 06/29/23 09:03 Dose: 400 mg Documented By: TERRY Melatonin (Melatonin 3 Mg Tablet) 6 mg PO BEDTIME PRN PRN Reason: Insomnia Morphine Sulfate (Morphine Sulfate 2 Mg/Ml Cartridge) 2 mg IM Q4H PRN; Protocol PRN Reason: Pain, Severe (Pain Scale 7-10) Last Admin: 06/27/23 05:53 Dose: 2 mg Documented By: EILEEN Naproxen (Naproxen 500 Mg Tablet) 500 mg PO DAILY@1800 [facility] Last Admin: 06/28/23 17:07 Dose: 500 mg Documented By: TERRY Omeprazole (Omeprazole 20 Mg Capsule.) 20 mg PO DAILY@0630 [facility] Last Admin: 06/29/23 05:18 Dose: 20 mg Documented By: IVANNA Ondansetron HCl (Ondansetron Hcl 4 Mg/2 Ml Vial) 4 mg IVPUSH Q8H PRN PRN Reason: Nausea and Vomiting Polyethylene Glycol (Polyethylene Glycol 3350 17 Gm Powd.Pack) 17 gm PO DAILY@0900 [facility] Last Admin: 06/29/23 09:04 Dose: 17 gm Documented By: TERRY Sodium Chloride (0.9 % Sodium Chloride Flush 3 Ml Syringe) 3 ml IVFLUSH QSHIFT [facility] Last Admin: 06/29/23 09:04 Dose: 3 ml Documented By: TERRY Labs 06/28/23 06:08 06/29/23 05:48 Labs: Laboratory Results - last 24 hr 06/28/23 06/29/23 14:36 05:48 Hold Purple Top SEE NOTE Anion Gap 14 12 Estim Creat Clear Calc 34.8 41.6 Estimated GFR > 60 > 60 Random Glucose 190 H 106 Calcium 8.4 8.7 Microbiology Microbiology Results: Microbiology 06/26/23 Unknown Urine Culture - Final Urine clean catch - Urine barnes top No growth. Assessment and Plan (1) Leukocytosis: Status: Acute (2) Urinary tract infection: Status: Acute (3) Closed intertrochanteric fracture of left femur: Status: Acute Plan Pt is a 73-year-old female with a PMH significant for?cerebral palsy, spina bifida, nonverbal at baseline, and chronically wheelchair-bound who presents [facility] the ED from [facility]?for evaluation of left thigh swelling. Pt will be admitted to the hospital for treatment of left hip fracture with likely surgical intervention. Left hip fracture X-ray of pelvis found a comminuted intertrochanteric fracture of the left femoral head with mild impaction Etiology unclear Ortho consulted, no plans for surgery given her wheelchair-bount status Tylenol for pain management start diet PT consult Plan for discharge to facility tomorrow, a follow up by [facility] to discuss possible hospice measures Leukocytosis 2/2 UTI WBC trended down Negative cultures DC Ceftriaxone after 3 doses Hx of cerebral palsy Continue dantrolene GERD Continue omeprazole DNR/DNI DVT Prophylaxis: Lovenox Pt will require a hospitalization overnight for treatment of?left hip fracture and pain management as [facility] will not take her back over the weekend pending safe discharge plan Quality Stroke Does the patient have a stroke diagnosis?: No VTE Prior VTE?: No VTE Risk Level:: Medical - moderate - high VTE Device Contraindication: N/A - Device Ordered VTE Drug Contraindication: Treatment Not Indicated
[2023-06-29] MEDS: Enoxaparin Sodium 40 MG/0.4 ML SYRINGE SUBCUT (13:38)
[2023-06-29 15:49] VITALS: BP 149/92; PULSE 98; RESP 16; TEMP 36.8; O2SAT 93
[2023-06-29] MEDS: NaPROXEN 500 MG TABLET PO (17:02)
[2023-06-29 19:33] VITALS: BP 174/91; PULSE 95; RESP 20; TEMP 36.9; O2SAT 97
[2023-06-30 04:00] VITALS: BP 177/94; PULSE 89; RESP 16; TEMP 36.5; O2SAT 97
[2023-06-30 07:46] VITALS: BP 136/85; PULSE 84; RESP 20; TEMP 36.9; O2SAT 96
[2023-06-30 08:07] LABS: Anion Gap 15 (12-20); Blood Urea Nitrogen 18 mg/dL (9-16); Carbon Dioxide 25 mmol/L (22-29); Chloride 109 mmol/L (96-108); Creatinine Clr Calc Pharmacy 40.4; Estimated Glomerular Filt Rate > 60; Glucose Random 88 mg/dL (60-115); Potassium 4.2 mmol/L (3.3-5.1); Sodium 145 mmol/L (135-145)
[2023-06-30] MEDS: Gabapentin 100 MG CAPSULE PO ×3 (08:27→20:33)
[2023-06-30] MEDS: Calcium + Vitamin D 250 MG TABLET PO ×2 (08:27→20:33)
[2023-06-30] MEDS: Magnesium Oxide 400 MG TABLET PO (08:27)
[2023-06-30] MEDS: Acetaminophen 325 MG TABLET 650 MG PO ×3 (08:28→20:33)
[2023-06-30] MEDS: polyethylene glycoL 3350 17 GM POWD.PACK PO (08:28)
[2023-06-30] MEDS: 0.9 % Sodium Chloride Flush 3 ML SYRINGE IVFLUSH ×3 (08:28→20:33)
[2023-06-30] MEDS: Enoxaparin Sodium 40 MG/0.4 ML SYRINGE SUBCUT (10:55)
[2023-06-30 11:39] VITALS: BP 163/93; PULSE 77; RESP 16; TEMP 36.8; O2SAT 95
[2023-06-30] MEDS: oxyCODONE HCl Immed Release 5 MG TABLET PO ×3 (11:41→20:32)
--- NOTE | 2023-06-30 11:42 | MHC.CM.PN ---
CM spoke with [employer] Sampler/Gaviota @ [phone], who directed CM to speak with Nursing Home Nurse/Bonnie @ [phone] but CM could only leave a detailed message for Bonnie and CM awaits a return call. Gaviota did indicate that it is not possible for Patient to return to the Nursing Home today because, changes need to be made to the house. TARA has informed [facility] RN & MD. CM will continue to follow.
--- NOTE | 2023-06-30 11:55 | P.PNIM_ITS ---
Subjective Subjective Date of Service: 06/30/23 Interval History: Seen and evaluated this morning lying comfortable in her bed , pain with moving her non-verbal no reported overnight events Review of Systems Review of Systems: Yes Unobtainable due to mental condition Physical Exam 2 Vital Signs: Vital Signs: Last Vital Signs Temp 98.2 F 06/30/23 11:39 Pulse 77 06/30/23 11:39 Resp 16 06/30/23 11:39 BP 163/93 H 06/30/23 11:39 Pulse Ox 95 06/30/23 11:39 O2 Del Method Room Air 06/30/23 11:39 BMI result Body Mass Index 16.3 Const: Other: Constitutional : Awake, underwieght, not in distress Neck : Normal inspection, Supple Cardiovascular : RRR, no JVP, no lower extremity edema Respiratory : good bilateral air entry, no crackles Gastrointestinal: soft, lax, Non tender Skin : Warm, Dry Skeletal; LLE externally rotated and shorted Neurological : Alert & non verbal, moving all extremities Objective Data Active Medications Acetaminophen (Acetaminophen 325 Mg Tablet) 650 mg PO TID [facility] Last Admin: 06/30/23 08:28 Dose: 650 mg Documented By: AUNDREA Calcium Carbonate/Cholecalciferol (Calcium + Vitamin D 250 Mg Tablet) 250 mg PO BID [facility] Last Admin: 06/30/23 08:27 Dose: 250 mg Documented By: AUNDREA Dantrolene Sodium (Dantrolene Sodium 25 Mg Capsule) 25 mg PO BEDTIME [facility] Last Admin: 06/29/23 20:07 Dose: 25 mg Documented By: KARIN Enoxaparin Sodium (Enoxaparin Sodium 40 Mg/0.4 Ml Syringe) 40 mg SUBCUT Q24H [facility] Last Admin: 06/30/23 10:55 Dose: 40 mg Documented By: AUNDREA Gabapentin (Gabapentin 100 Mg Capsule) 100 mg PO TID [facility] Last Admin: 06/30/23 08:27 Dose: 100 mg Documented By: AUNDREA Magnesium Oxide (Magnesium Oxide 400 Mg Tablet) 400 mg PO DAILY [facility] Last Admin: 06/30/23 08:27 Dose: 400 mg Documented By: AUNDREA Melatonin (Melatonin 3 Mg Tablet) 6 mg PO BEDTIME PRN PRN Reason: Insomnia Morphine Sulfate (Morphine Sulfate 2 Mg/Ml Cartridge) 2 mg IM Q4H PRN; Protocol PRN Reason: Pain, Severe (Pain Scale 7-10) Last Admin: 06/27/23 05:53 Dose: 2 mg Documented By: EILEEN Naproxen (Naproxen 500 Mg Tablet) 500 mg PO DAILY@1800 [facility] Last Admin: 06/29/23 17:02 Dose: 500 mg Documented By: TERRY Omeprazole (Omeprazole 20 Mg Capsule.Dr) 20 mg PO DAILY@0630 [facility] Last Admin: 06/30/23 05:38 Dose: Not Given Documented By: KARIN Non-Admin Reason: Cannot take meds whole Ondansetron HCl (Ondansetron Hcl 4 Mg/2 Ml Vial) 4 mg IVPUSH Q8H PRN PRN Reason: Nausea and Vomiting Oxycodone HCl (Oxycodone Hcl Immed Release 5 Mg Tablet) 5 mg PO Q4H PRN PRN Reason: Pain, Severe (Pain Scale 7-10) Last Admin: 06/30/23 11:41 Dose: 5 mg Documented By: LAUREN Polyethylene Glycol (Polyethylene Glycol 3350 17 Gm Powd.Pack) 17 gm PO DAILY@0900 [facility] Last Admin: 06/30/23 08:28 Dose: 17 gm Documented By: AUNDREA Sodium Chloride (0.9 % Sodium Chloride Flush 3 Ml Syringe) 3 ml IVFLUSH QSHIFT [facility] Last Admin: 06/30/23 08:28 Dose: 3 ml Documented By: AUNDREA Labs 06/28/23 06:08 06/30/23 07:23 Labs: Laboratory Results - last 24 hr 06/30/23 07:23 Hold Purple Top SEE NOTE Anion Gap 15 Estim Creat Clear Calc 40.4 Estimated GFR > 60 Random Glucose 88 Calcium 9.0 Assessment and Plan (1) Closed intertrochanteric fracture of left femur: Status: Acute Plan Pt is a 73-year-old female with a PMH significant for?cerebral palsy, spina bifida, nonverbal at baseline, and chronically wheelchair-bound who presents to the ED from [facility]?for evaluation of left thigh swelling. Pt will be admitted to the hospital for treatment of left hip fracture with likely surgical intervention. Left hip fracture X-ray of pelvis found a comminuted intertrochanteric fracture of the left femoral head with mild impaction, Etiology unclear Ortho consulted, no plans for surgery given her wheelchair-bount status Tylenol for pain management tolerating diet PT consult Plan for discharge to facility tomorrow, a follow up by [facility] to discuss possible hospice measures Leukocytosis 2/2 UTI WBC trended down Negative cultures DC Ceftriaxone after 3 doses Hx of cerebral palsy Continue dantrolene GERD Continue omeprazole DNR/DNI DVT Prophylaxis: Lovenox Pt will require a hospitalization overnight for treatment of?left hip fracture and pain management pending arrangements to go back to [facility] Quality Stroke Does the patient have a stroke diagnosis?: No VTE Prior VTE?: No VTE Risk Level:: Medical - moderate - high VTE Device Contraindication: N/A - Device Ordered VTE Drug Contraindication: Treatment Not Indicated
--- NOTE | 2023-06-30 13:53 | MHC.CM.PN ---
Addendum entered by Yany Miller RN 07/01/23 08:26: Per [facility] hospice, guardian did not feel hospice was a good fit at this time. aware and will discuss plan of care with guardian. Original Note: EMR REVIEWED. DP: PATIENT TO RETURN TO [facility] TOMORROW 07/01/23 VIA BLS AT 12PM. CM DISCUSSED WITH BROTHER/GUARDIAN WHO IS REQUESTING HOSPICE INFORMATIONAL - REFERRAL TO [facility]. [facility] HAS ACCEPTED AND WILL COORDINATE WITH GUARDIAN FOR INFORMATIONAL AFTER RETURN TO . AWARE. MARIETTA LUONG ALSO AWARE. IMM VERBALLY DELIVERED TO GUARDIAN, COPY LEFT AT BEDSIDE PER REQUEST. CM WILL CONTINUE TO FOLLOW.
--- NOTE | 2023-06-30 14:55 | MHC.CLN ---
Addendum entered by Cheryl Burgos, RD 06/30/23 14:58: PATIENT WITH UNSTAGEABLE AREA TO LEFT HEEL. SUPPLEMENT PROVIDES ADDITIONAL PROTEIN TO PROMOTE WOUND HEALING. Original Note: F/U APPETITE APPEARS GOOD. DIET=PUREE WITH HONEY THICK LIQUIDS. MAGIC CUP BID PROVIDES 580 KCALS, 18 G PROTEIN. MAGIC CUP TID TO INCREASE KCALS. FOLLOW FOR INTAKE AND DIET TOLERANCE.
[2023-06-30 15:30] VITALS: BP 132/85; PULSE 84; RESP 18; TEMP 37.1; O2SAT 96
[2023-06-30] MEDS: NaPROXEN 500 MG TABLET PO (17:53)
[2023-06-30 19:21] VITALS: BP 178/95; PULSE 103; RESP 18; TEMP 36.1; O2SAT 95
[2023-06-30 19:36] VITALS: BP 168/92
[2023-06-30] MEDS: Melatonin 3 MG TABLET 6 MG PO (20:33)
[2023-07-01 03:39] VITALS: BP 144/84; PULSE 78; RESP 18; TEMP 36.2; O2SAT 96
--- NOTE | 2023-07-01 07:27 | PM.DS ---
DS: Providers Provider Date of Service: 07/01/23 Date of admission: 06/26/23 13:28 Primary care physician: Valentín Webb MD Consults: 06/26/23 11:23 Consult to Orthopedics Stat Consulting Provider: Reynold Nickerson Reason for consultation: left femur fx Has provider been notified: Yes DS: Diagnosis Discharge Diagnosis (1) Closed intertrochanteric fracture of left femur: Status: Acute (2) Leukocytosis: Status: Acute (3) Urinary tract infection: Status: Acute DS: Summary Hospital Course Hospital Course: Admission note HPI Pt is a 73-year-old female with a PMH significant for?cerebral palsy, spina bifida, nonverbal at baseline, and chronically wheelchair-bound who presents to the ED from nursing home?for evaluation of left thigh swelling. Pt is a resident of [facility] and also attends a day program. Pt nonverbal at baseline and unable to follow commands; she is thus incapable of providing HPI which is instead obtained from nursing home staff who is at bedside. Staff states patient was in her normal state of health last night, but staff noticed pt's left thigh was swollen and externally rotated when they woken her up this morning and began dressing her. Staff deny any trauma to the area or recent falls. Pt is transferred with a Macie lift, and staff deny any accidents during recent transfers. Staff also deny pt exhibiting any other symptoms or recent illnesses. No fever, vomiting, diarrhea. Denies cough. In the ED pt was hypertensive up to 158/93, otherwise vitals WNL. Labs were significant for leukocytosis of 14.4, H&H 11.6/35.2, platelets 615, potassium 3.2. X-ray of pelvis found comminuted intertrochanteric fracture of the left femoral head with mild impaction. CXR showed no acute pulmonary pathology. Venous duplex of left lower extremity found no DVT. Pt was treated with ketorolac. Pt will be admitted to the hospital for treatment of left hip fracture with likely surgical intervention. Hospital course # Left hip fracture X-ray of pelvis found a comminuted intertrochanteric fracture of the left femoral head with mild impaction, Etiology unclear. Evaluated by Orthopedics team who recommended no plans for surgery given her wheelchair-bound and suggested NWB on LLE with pain control and follow up as outpatient in 1 month. a follow up by [facility] to discuss possible hospice measures at nursing home. # Leukocytosis 2/2 UTI WBC trended down. Negative urine cultures. Finished Ceftriaxone 3 days course. Nonweightbearing continued on the left lower extremity Pain management as appropriate Follow up with [facility] Orth[facility]ics in 4 weeks Time Attestation Discharge coordination time: Greater than 30 minutes Quality: Safe Use of Opioids Does Pt have an Active Cancer Diagnosis on the Problem List?: No Quality: Stroke Does the patient have a stroke diagnosis?: No Physical Exam Vital Signs: Vital Signs: Last Vital Signs Temp 97.2 F 07/01/23 03:39 Pulse 78 07/01/23 03:39 Resp 18 07/01/23 03:39 BP 144/84 H 07/01/23 03:39 Pulse Ox 96 07/01/23 03:39 O2 Del Method Room Air 07/01/23 03:39 BMI result Body Mass Index 16.3 Const: Other: Constitutional : Awake, underwieght, not in distress Neck : Normal inspection, Supple Cardiovascular : RRR, no JVP, no lower extremity edema Respiratory : good bilateral air entry, no crackles Gastrointestinal: soft, lax, Non tender Skin : Warm, Dry Skeletal; LLE with no swelling or erythema, mild tenderness with palpation Neurological : Alert & non verbal, moving all extremities DS: Data Data Completed and Pending Labs on day of discharge: Laboratory Results - last 24 hr 06/30/23 07:23 Hold Purple Top SEE NOTE Sodium 145 Potassium 4.2 Chloride 109 H Carbon Dioxide 25 Anion Gap 15 BUN 18 H Creatinine 0.69 Estim Creat Clear Calc 40.4 Estimated GFR > 60 Random Glucose 88 Calcium 9.0 Discharge Plan Discharge Anticipated Discharge Date/Time: 07/01/23 07:24 Patient Disposition: Xfer Other Discharge Diagnosis: Left femur fracture Referrals: [facility] [Outside] - 1 Week (Reach out to [facility] if guardian/brother feels that services are needed.) Valentín Webb MD [Primary Care Provider] - 1 Week Discharge Medications: New oxycodone 5 mg Tablet 5 mg PO Q4H PRN (Reason: Pain, Severe (Pain Scale 7-10)) Qty: 30 0RF Rx Instructions: Partial Fill upon patient request. Continued dantrolene 25 mg capsule 25 mg PO BEDTIME magnesium oxide 400 mg (241.3 mg magnesium) tablet 1 tab PO DAILY omeprazole 20 mg capsule,delayed release(DR/EC) 1 cap PO DAILY@0630 calcium carbonate-vitamin D3 [Oyster Shell Calcium-Vit D3] 500 mg-5 mcg (200 unit) tablet 1 tab PO BID gabapentin 100 mg capsule 100 mg PO TID Rx Instructions: at 0600, 1200, and 1800 polyethylene glycol 3350 17 gram/dose powder 17 g PO DAILY@0900 naproxen 500 mg tablet 500 mg PO DAILY@1800 (DME) Xeroform Petrolatum Dressing 2 X 2 bandage See Rx Instructions .Route Qty: 20 0RF Rx Instructions: Apply to affected area once daily Discharge Orders: Discharge Order (Routine); Ordered 07/01/23 Ordered By: Gerda Arrington Diet: Advance to usual diet Activity on Discharge: As tolerated Stand Alone Forms: Patient Portal Discharge page Care Plan Goals: Read below Health Concerns: Read below Plan of Treatment: Read below Assessment: Nonweightbearing continued on the left lower extremity Pain management as appropriate Follow up with [facility] Orthopedics in 4 weeks Discharge Date/Time: 07/01/23 12:53
[2023-07-01] MEDS: Magnesium Oxide 400 MG TABLET PO (07:35)
[2023-07-01] MEDS: Calcium + Vitamin D 250 MG TABLET PO (07:35)
[2023-07-01] MEDS: Gabapentin 100 MG CAPSULE PO (07:35)
[2023-07-01] MEDS: Acetaminophen 325 MG TABLET 650 MG PO (07:35)
[2023-07-01] MEDS: polyethylene glycoL 3350 17 GM POWD.PACK PO (07:35)
[2023-07-01] MEDS: 0.9 % Sodium Chloride Flush 3 ML SYRINGE IVFLUSH (07:39)
[2023-07-01 08:00] VITALS: PULSE 78; RESP 17; TEMP 36.7; O2SAT 96
--- NOTE | 2023-07-01 10:12 | MHC.CM.PN ---
EMR REVIEWED. PER MD ROUNDS PATIENT IS CLEARED TO DC TO [facility] TODAY. BLS TRANSPORT SCHEDULED FOR 12:00 PM. RN, MD, GUARDIAN AND [facility]IDENT[facility] STAFF AWARE.
[2023-07-01] MEDS: Enoxaparin Sodium 40 MG/0.4 ML SYRINGE SUBCUT (11:14)
[2023-07-01] MEDS: oxyCODONE HCl Immed Release 5 MG TABLET PO (11:19)
--- NOTE | 2023-07-01 12:13 | P.CDIM_ITS ---
PROVIDER RESPONSE TEXT: To clarify, the appropriate diagnosis supported by the clinical indicators: Pressure (decubitus) ulcer, unstageable left heel QUERY TEXT: PHYSICIAN'S DOCUMENTATION REQUEST Date of Query: 06/30/2023 07:34 AM EST Patient Name: Sheree Govea Admit Date: 06/26/2023 Dear Gerda Arrington, A review of the medical record indicates additional documentation may be needed. Please review below and update the documentation accordingly. Clinical Indicators: Per Nursing Pressure Injury Assessment 06/28/23: Wound left heel unstageable, foam dressing Based on the above, could you please provide further information regarding the ulcer/wound: Pressure (decubitus) ulcer, unstageable left heel Traumatic wound Other (explain) Clinically unable to determine (explain) Thank you, Sheree Floyd RN Use of terms such as suspected, likely, concern for, or probable (associated with a specific diagnosi s that is being evaluated, monitored, or treated as if it exists) are acceptable and can be coded in the inpatient se tting, when documented at the time of discharge. Please use your independent medical judgment in providing your response. THIS QUERY IS PART OF THE PERMANENT MEDICAL RECORD
== END 2023-07-01 12:53 | disposition other institution (70) | DRG 536 ==
LOC: HO.ED 11:53 → HO.EDOVER 13:29 → HO.IMC 20:01 → HO.S3 06-30 09:51
PROVIDERS: Admitting Provider Student in an Organized Health Care Education/Training Program; Emergency Provider Student in an Organized Health Care Education/Training Program; PCP Internal Medicine; Visit Provider Student in an Organized Health Care Education/Training Program
DX: S72.142A Displaced intertrochanteric fracture of left femur, initial encounter for closed fracture (principal); N39.0 Urinary tract infection, site not specified; Z68.1 Body mass index [BMI] 19.9 or less, adult; X58.XXXA Exposure to other specified factors, initial encounter; L89.620 Pressure ulcer of left heel, unstageable; Z66 Do not resuscitate; R63.6 Underweight; G80.9 Cerebral palsy, unspecified; K21.9 Gastro-esophageal reflux disease without esophagitis; Q05.9 Spina bifida, unspecified; Z87.440 Personal history of urinary (tract) infections; Z99.3 Dependence on wheelchair; Z79.899 Other long term (current) drug therapy
CPT/HCPCS: 36415; 71045; 72170; 80048; 81001; 83735; 85025; 85027; 85610; 85730; 86850; 86900; 86901; 87086; 93005; 93971; 99285; C1758; J0696; J1650; J1885; J2270

== ENCOUNTER → 2023-06-26 12:09 | Outpatient (BNV) | payer MEDICARE, MEDICAID, SELFPAY | PROVIDERS: Admitting Provider Student in an Organized Health Care Education/Training Program; Emergency Provider Student in an Organized Health Care Education/Training Program; PCP Internal Medicine; Visit Provider Internal Medicine Cardiovascular Disease | DX: R94.31 Abnormal electrocardiogram [ECG] [EKG] (principal) | CPT/HCPCS: 93010 ==

== ENCOUNTER → 2023-06-26 13:28 | Outpatient (BNV) | payer MEDICARE, MEDICAID, SELFPAY | PROVIDERS: Admitting Provider Student in an Organized Health Care Education/Training Program; Emergency Provider Student in an Organized Health Care Education/Training Program; PCP Internal Medicine; Visit Provider Student in an Organized Health Care Education/Training Program | DX: S72.142A Displaced intertrochanteric fracture of left femur, initial encounter for closed fracture (principal); D72.829 Elevated white blood cell count, unspecified; N39.0 Urinary tract infection, site not specified | CPT/HCPCS: 99223; 99231; 99232; 99239 ==

== ENCOUNTER → 2023-06-26 13:28 | Outpatient (BNV) | payer MEDICARE, MEDICAID, SELFPAY | PROVIDERS: Admitting Provider Student in an Organized Health Care Education/Training Program; Emergency Provider Student in an Organized Health Care Education/Training Program; PCP Internal Medicine; Visit Provider Physician Assistant | DX: S72.142A Displaced intertrochanteric fracture of left femur, initial encounter for closed fracture (principal) | CPT/HCPCS: 99221 ==